=== PATIENT | male | born 1970 | race Caucasian/White ===

== ENCOUNTER 2016-11-15 11:07 | Emergency (ER) | payer MEDICAID ==
[~2016-11-15] VITALS: Ht 172.7 cm; Wt 101.0 kg
[2016-11-15] MEDS ORDERED: SODIUM CHLORIDE FLUSH 10ML SYR IVF ONE (11:30)
[2016-11-15] MEDS ORDERED: MORPHINE SULFATE 4 MG/ML, 1ML IVPush PRN (11:30)
[2016-11-15] MEDS ORDERED: ONDANSETRON 2MG/ML, 2ML IVPush ONE (11:30)
[2016-11-15] MEDS ORDERED: GLIM1TAB2 PO (11:34)
[2016-11-15] MEDS ORDERED: LIRA0.6P SQ (11:34)
[2016-11-15] MEDS ORDERED: METF10002 PO (11:34)
[2016-11-15] MEDS ORDERED: FENO48TA5 PO (11:34)
[2016-11-15] MEDS ORDERED: HYDR-3138 PO (11:34)
[2016-11-15] MEDS ORDERED: TRAM50TA2 PO (11:34)
[2016-11-15] MEDS ORDERED: ATOR20TA9 PO (11:34)
[2016-11-15] MEDS ORDERED: ADAL20KI SQ (11:34)
[2016-11-15] MEDS ORDERED: METO100T3 PO (11:34)
[2016-11-15 11:50] LABS: HEMOGLOBIN 15.4 g/dL (13.7-18.0)
[2016-11-15 12:02] LABS: BLOOD UREA NITROGEN 12 mg/dL (7-18)
[2016-11-15] MEDS ORDERED: MORPHINE SULFATE 4 MG/ML, 1ML ONE (12:05)
[2016-11-15] MEDS ORDERED: ONDANSETRON 2MG/ML, 2ML ONE (12:05)
[2016-11-15 12:10] LABS: IS PT STATUS REG ER OR PRE ER? YES
[2016-11-15 13:08] VITALS: BP 147/91
== END 2016-11-15 13:42 | disposition home or self-care (01) ==
LOC: ED 12:33
DX: J18.9 Pneumonia, unspecified organism (principal); E11.9 Type 2 diabetes mellitus without complications; I10 Essential (primary) hypertension; M19.90 Unspecified osteoarthritis, unspecified site; Z87.891 Personal history of nicotine dependence; Z87.01 Personal history of pneumonia (recurrent)
CPT/HCPCS: 36415; 71020; 80048; 82040; 83605; 83880; 84145; 84484; 85025; 85610; 85651; 85730; 86140; 87040; 93005; 96374; 96375; 99285; J2405

== ENCOUNTER 2018-11-03 07:51 | Emergency (ER) | payer MEDICAID ==
[~2018-11-03] VITALS: Ht 172.7 cm; Wt 104.0 kg
[~2018-11-03 07:51] MED LIST: ADAL20KI SQ; ATOR20TA37 PO; FENO48TA5 PO; GLIM1TAB2 PO; HYDR-3237 PO; LIRA0.6P SQ; METF10002 PO; METO100T7 PO; TRAM50TA2 PO
--- NOTE | 2018-11-03 07:57 | NUR ---
EKG IN TRIAGE
--- NOTE | 2018-11-03 08:02 | NUR ---
Pt ambulates with steady gait and balance from triage to ED room. No defecits observed.
--- NOTE | 2018-11-03 08:05 | NUR ---
First contact with pt. ED MD at bedside. 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 Three weeks ago I was on zithromax. 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 When I ran out of zithromax, I took my wifes doxycycline, it didn't help. I get night sweats, I always have those. I haven't had any fevers or chills." NADN. Pt resting on gurney with face mask on. Pt has unlabored respirations equal bilaterally. Skin is pink, warm, and dry. Pt is AOX4. Pt is able to speak in full sentences. No coughing observed at this time. Pt connected to all monitors. All safety measures in place. Call light within reach.
[2018-11-03] MEDS ORDERED: DULA1.5P INJ (08:20)
[2018-11-03 09:13] LABS: BASOPHILS # (AUTO) 0.03 x10^3/uL (0-0.1); BASOPHILS % (AUTO) 1 % (0-1); EOSINOPHILS # (AUTO) 0.19 x10^3/uL (0-0.4); EOSINOPHILS % (AUTO) 4 % (1-7); LYMPHOCYTES # (AUTO) 2.12 x10^3/uL (1-3.4); LYMPHOCYTES % (AUTO) 40 % (22-44); MD NO; MEAN CORPUSCULAR HGB CONC 34.3 g/dL (33.2-36.2); MEAN CORPUSCULAR VOLUME 93.3 fL (81-97); MEAN PLATELET VOLUME 8.5 fL (7.4-10.4); MONOCYTES # (AUTO) 0.61 x10^3/uL (0.2-0.8); MONOCYTES % (AUTO) 12 % (2-9); NEUTROPHILS # (AUTO) 2.28 x10^3/uL (1.8-6.8); NEUTROPHILS % (AUTO) 44 % (42-75); PLATELET COUNT 219 x10^3/uL (130-400); RED BLOOD COUNT 4.63 x10^6/uL (4.38-5.82)
[2018-11-03 09:16] LABS: ALANINE AMINOTRANSFERASE 152 U/L (12-78); ALBUMIN 3.5 g/dL (3.4-5.0); ANION GAP 8 mmol/L (5-15); CALCIUM 9.2 mg/dL (8.5-10.1); CHLORIDE 104 mmol/L (98-107); CREATININE 0.79 mg/dL (0.7-1.3)
[2018-11-03 09:17] VITALS: BP 168/110
[2018-11-03 09:20] LABS: ALKALINE PHOSPHATASE 137 U/L (45-117); BILIRUBIN,TOTAL 0.5 mg/dL (0.2-1.0); TOTAL PROTEIN 7.8 g/dL (6.4-8.2); TROPONIN I < 0.015 ng/mL (0.000-0.045)
--- NOTE | 2018-11-03 09:49 | NUR ---
Pt resting on gurney. MAHONEY. No needs expressed. Pt waiting for D/C paperwork from ED .
--- NOTE | 2018-11-03 10:31 | NUR ---
Patient given discharge instructions and they have confirmed that they understand the instructions. Patient ambulatory with steady gait. Pt give discharge paperwork and prescription. Pt left with all personal belongings.
== END 2018-11-03 10:33 | disposition home or self-care (01) ==
LOC: ED 09:19
DX: J06.9 Acute upper respiratory infection, unspecified (principal); M19.90 Unspecified osteoarthritis, unspecified site; E11.9 Type 2 diabetes mellitus without complications; I10 Essential (primary) hypertension
CPT/HCPCS: 36415; 71046; 80053; 83605; 83880; 84484; 85025; 87040; 93005; 99284

== ENCOUNTER 2019-12-15 09:49 | Emergency (ER) | payer MEDICAID, OTHER ==
[~2019-12-15] VITALS: Ht 172.7 cm; Wt 99.7 kg
[~2019-12-15 09:49] MED LIST changes: +DULA1.5P INJ; +FENO48TA10 PO; -FENO48TA5 PO; -GLIM1TAB2 PO; +GLIM1TAB7 PO
[2019-12-15] MEDS ORDERED: ONDANSETRON ODT 8 MG ONE (10:25)
[2019-12-15] MEDS ORDERED: OXYcodone/APAP 10/325MG TABLET ONE (10:25)
[2019-12-15] MEDS ORDERED: OXYcodone/APAP 10/325MG TABLET PO ONE (10:30)
[2019-12-15] MEDS ORDERED: ONDANSETRON ODT 4 MG PO PRN (10:30)
--- NOTE | 2019-12-15 10:34 | NUR ---
PT. IS A & O X 4 WITH A GCS OF 15. PT. HAS C/O A 2 WEEK HX OF ABDOMINAL PAIN. PT. STATES NOTHING EXACERBATES IT OR ALLEVIATES IT. PT. IS PINK, WARM AND DRY. LUNGS ARE CTA. MM ARE PINK AND MOIST WITH PULSES +2 THROUGHOUT. PT.'S CAP REFILL IS BRISK LESS THAN 3 SECONDS. PT.'S ABD. IS SOFT AND ROUND WITH BS + X 4 QUADS. PT. STATES HIS PAIN IS IN HIS EPIGASTRIC AREA. PT. WAS MEDICATED FOR PAIN ORDERED. HE IS RECEIVING HIS BEDSIDE ULTRASOUND. SIDERAILS REMAIN UP X 2 WITH THE CALL LIGHT IN PLACE.
[2019-12-15 10:43] LABS: BASOPHILS # (AUTO) 0.04 x10^3/uL (0-0.1); BASOPHILS % (AUTO) 1 % (0-1); CALCIUM 9.3 mg/dL (8.5-10.1); CHLORIDE 102 mmol/L (98-107); EOSINOPHILS # (AUTO) 0.13 x10^3/uL (0-0.4); EOSINOPHILS % (AUTO) 3 % (1-7); LYMPHOCYTES # (AUTO) 2.44 x10^3/uL (1-3.4); LYMPHOCYTES % (AUTO) 53 % (22-44); MD NO; MEAN CORPUSCULAR HEMOGLOBIN 32.6 pg (27.5-34.5); MEAN CORPUSCULAR HGB CONC 34.4 g/dL (33.2-36.2); MEAN CORPUSCULAR VOLUME 94.7 fL (81-97); MEAN PLATELET VOLUME 7.7 fL (7.4-10.4); MONOCYTES # (AUTO) 0.47 x10^3/uL (0.2-0.8); MONOCYTES % (AUTO) 10 % (2-9); NEUTROPHILS # (AUTO) 1.54 x10^3/uL (1.8-6.8); NEUTROPHILS % (AUTO) 33 % (42-75); PLATELET COUNT 233 x10^3/uL (130-400); RED BLOOD COUNT 4.69 x10^6/uL (4.38-5.82); RED CELL DISTRIBUTION WIDTH 13.4 % (9.4-14.8)
[2019-12-15 10:50] LABS: ALANINE AMINOTRANSFERASE 128 U/L (12-78); ALBUMIN 3.7 g/dL (3.4-5.0); ALKALINE PHOSPHATASE 129 U/L (45-117); ANION GAP 9 mmol/L (5-15); BILIRUBIN,TOTAL 0.6 mg/dL (0.2-1.0); CREATININE 0.76 mg/dL (0.7-1.3); TOTAL PROTEIN 8.4 g/dL (6.4-8.2)
--- NOTE | 2019-12-15 11:05 | NUR ---
PT. STATES RELIEF FROM HIS PAIN AND RATES IT 4/10. VSS. NO FURTHER CONCERNS.
--- NOTE | 2019-12-15 11:40 | NUR ---
PT. WAS GIVEN DISCHARGE INSTRUCTIONS AND SCRIPTS WITH UNDERSTANDING VERBALIZED ALONG WITH WILLINGNESS TO COMPLY. PT. WAS AMBULATORY TO THE DISCHARGE DESK, STEADY GAIT.
[2019-12-15 11:41] VITALS: BP 140/60
== END 2019-12-15 11:44 | disposition home or self-care (01) ==
LOC: ED 10:08
DX: K85.20 Alcohol induced acute pancreatitis without necrosis or infection (principal); R10.13 Epigastric pain; R10.11 Right upper quadrant pain; I10 Essential (primary) hypertension; E11.9 Type 2 diabetes mellitus without complications; R94.31 Abnormal electrocardiogram [ECG] [EKG]
CPT/HCPCS: 36415; 76705; 80053; 83690; 85025; 93005; 99285; Q0162

== ENCOUNTER 2020-01-24 21:36 | Inpatient (IN) | payer MEDICAID ==
[~2020-01-24] VITALS: Ht 172.7 cm; Wt 100.2 kg
[~2020-01-24 21:36] MED LIST changes: +FAMO10TA90 PO; +FURO-93 PO; +GABA300C10 PO; +INSU100I13 SQ-INSULIN; +LIPA1CAP61 PO; +LISI-167 PO; +POTA20PA25 PO
[2020-01-24] MEDS ORDERED: ONDANSETRON 2MG/ML, 2ML IVPush ONE (22:30)
[2020-01-24] MEDS ORDERED: SODIUM CHLORIDE 0.9% 1,000ML IVBOLUS ONE (22:30)
[2020-01-24] MEDS ORDERED: ONDANSETRON 2MG/ML, 2ML ONE (22:34)
[2020-01-24] MEDS ORDERED: MORPHINE SULFATE 4 MG/ML, 1ML ONE ×2 (22:34→23:25)
[2020-01-24] MEDS: MORPHINE SULFATE 4 MG/ML, 1ML IVPush PRN ×2 (22:37→23:27)
--- NOTE | 2020-01-24 22:42 | NUR ---
PT HAD A MASS REMOVED 3 WEEKS AGO FROM PANCREASE AND PT FOR THE LAST 2-3 DAYS HAS HAD N/V WITH INCREASED ABD PAIN AND ABD RIDGITITY. PT A/O X4 WITH A STEAD GAIT.
[2020-01-24 22:57] LABS: BASOPHILS # (AUTO) 0.02 x10^3/uL (0-0.1); BASOPHILS % (AUTO) 0 % (0-1); EOSINOPHILS # (AUTO) 0.01 x10^3/uL (0-0.4); EOSINOPHILS % (AUTO) 0 % (1-7); LYMPHOCYTES # (AUTO) 1.52 x10^3/uL (1-3.4); LYMPHOCYTES % (AUTO) 18 % (22-44); MD NO; MEAN CORPUSCULAR HEMOGLOBIN 31.8 pg (27.5-34.5); MEAN CORPUSCULAR HGB CONC 33.7 g/dL (33.2-36.2); MEAN CORPUSCULAR VOLUME 94.5 fL (81-97); MEAN PLATELET VOLUME 7.4 fL (7.4-10.4); MONOCYTES # (AUTO) 0.71 x10^3/uL (0.2-0.8); MONOCYTES % (AUTO) 8 % (2-9); NEUTROPHILS # (AUTO) 6.13 x10^3/uL (1.8-6.8); NEUTROPHILS % (AUTO) 73 % (42-75); PLATELET COUNT 213 x10^3/uL (130-400); RED BLOOD COUNT 4.62 x10^6/uL (4.38-5.82); RED CELL DISTRIBUTION WIDTH 12.7 % (9.4-14.8)
[2020-01-24 23:01] LABS: ALANINE AMINOTRANSFERASE 49 U/L (12-78); ALBUMIN 3.5 g/dL (3.4-5.0); ANION GAP 11 mmol/L (5-15); CALCIUM 9.2 mg/dL (8.5-10.1); CHLORIDE 97 mmol/L (98-107)
[2020-01-24 23:03] LABS: ALKALINE PHOSPHATASE 132 U/L (45-117); BILIRUBIN,TOTAL 0.9 mg/dL (0.2-1.0); TOTAL PROTEIN 8.5 g/dL (6.4-8.2)
--- NOTE | 2020-01-24 23:03 | NUR ---
BEDSIDE REPORT RECEIVED FROM INÉS MCCOY. PT SITTING IN BED, WATCHING TV. NO SIGNS OF DISTRESS, VSS, RESPIRATIONS EVEN AND UNLABORED, NO COMPLAINTS, CONVERSING WITH THIS RN. PT STATES HE WANTS TO WAIT FOR PAIN MEDS, PT AWARE THAT PAIN MEDS ARE AVAILABLE. ALL NEEDS MET AT THIS TIME.
[2020-01-24] MEDS ORDERED: OMEP40CA42 PO (23:23)
--- NOTE | 2020-01-25 00:38 | NUR ---
PT AMBULATORY TO BATHROOM, STEADY GAIT. AWAITING FURTHER ORDERS, PT UPDATED ON THIS POC. VSS, RESPIRATONS EVEN AND UNLABORED, PT REPORTS PAIN, WILL CONITINUE TO MONITOR.
--- NOTE | 2020-01-25 00:52 | NUR ---
MED REC COMPLETED TO THE FULLEST EXTENT POSSIBLE WITH PT. PT UNAWARE OF SOME MEDS IN THE LIST.
[2020-01-25] MEDS ORDERED: SODIUM CHLORIDE 0.9% 1,000ML IVBOLUS ONE (01:00)
[2020-01-25] MEDS ORDERED: MORPHINE SULFATE 4 MG/ML, 1ML IVPush PRN (01:00)
[2020-01-25] MEDS ORDERED: OMNIPAQUE 350 MG/ML, 100ML BOTTLE ONE (01:36)
--- NOTE | 2020-01-25 02:00 | NUR ---
REPORT GIVEN TO INÉS VERDUGO.
[2020-01-25] MEDS ORDERED: MORPHINE SULFATE 4 MG/ML, 1ML ONE (02:01)
--- NOTE | 2020-01-25 02:08 | NUR ---
ADMITTING MD TO BEDSIDE. PT SITTING IN CHAIR FOR POSITION OF COMFORT. VSS, MEDICATED TO MAR FOR PAIN. PT WATCHING TV. NO SIGNS OF ACUTE DISTRESS.
[2020-01-25] MEDS ORDERED: ACETAMINOPHEN 325 MG TABLET PO PRN (02:30)
[2020-01-25] MEDS ORDERED: ONDANSETRON 2MG/ML, 2ML IVPush PRN (02:30)
[2020-01-25] MEDS ORDERED: morphine SULFATE 10 MG/ML, 1ML IVPush PRN (02:30)
[2020-01-25] MEDS: INSULIN LISPRO 100 UNITS/ML, PEN SQ-INSULIN SCH ×5 (02:30→21:00)
[2020-01-25] MEDS ORDERED: BISACODYL 10 MG SUPP PR PRN (02:30)
[2020-01-25] MEDS ORDERED: hydrALAzine 20 MG/ML, 1ML IVPush PRN (02:30)
[2020-01-25] MEDS ORDERED: PROMETHAZINE 25 MG/ML, 1ML IM PRN (02:30)
[2020-01-25] MEDS: INSULIN GLARGINE 100 UNITS/ML, PEN SQ-INSULIN SCH ×2 (02:30→21:00)
[2020-01-25] MEDS ORDERED: POLYETHYLENE GLYCOL 17 GM PACKET PO PRN (02:30)
[2020-01-25 02:50] VITALS: BP 168/114
[2020-01-25] MEDS: SODIUM CHLORIDE 0.9% 1,000 ML IV SCH ×4 (03:32→23:57)
[2020-01-25 03:46] VITALS: BP 138/83
[2020-01-25] MEDS ORDERED: OXYcodone IR 5MG TABLET PO ONE (04:30)
[2020-01-25] MEDS ORDERED: DIPHENHYDRAMINE 50 MG/ML, 1ML IVPush ONE (05:00)
[2020-01-25 07:57] VITALS: BP 156/83
[2020-01-25] MEDS ORDERED: HYDROmorphone 2 MG/ML, 1ML ONE ×2 (08:14→08:15)
[2020-01-25] MEDS: HYDROmorphone 2 MG/ML, 1ML IVPush PRN ×5 (08:26→22:15)
[2020-01-25] MEDS: LISINOPRIL 40 MG TABLET PO SCH (08:26)
[2020-01-25] MEDS: METOPROLOL TARTRATE 100 MG TAB PO SCH ×2 (08:26→21:28)
[2020-01-25] MEDS: OMEPRAZOLE 20 MG CAPSULE.DR PO SCH (08:26)
[2020-01-25] MEDS: PANCRELIPASE 24,000 CAPSULE.DR PO SCH ×3 (08:26→15:45)
[2020-01-25] MEDS ORDERED: HYDROmorphone 1 MG/ML, 1ML INJ IV PRN (08:30)
[2020-01-25 08:32] VITALS: BP 176/84
[2020-01-25] MEDS ORDERED: MAGNESIUM HYDROXIDE 8%, 30ML UDC PO PRN (10:00)
[2020-01-25 13:37] VITALS: BP 160/91
[2020-01-25 21:01] VITALS: BP 135/85
[2020-01-26 01:20] VITALS: BP 151/89
[2020-01-26] MEDS: HYDROmorphone 2 MG/ML, 1ML IVPush PRN ×5 (03:10→21:07)
[2020-01-26 05:29] LABS: BASOPHILS # (AUTO) 0.02 x10^3/uL (0-0.1); BASOPHILS % (AUTO) 0 % (0-1); EOSINOPHILS # (AUTO) 0.03 x10^3/uL (0-0.4); EOSINOPHILS % (AUTO) 0 % (1-7); LYMPHOCYTES # (AUTO) 1.04 x10^3/uL (1-3.4); LYMPHOCYTES % (AUTO) 12 % (22-44); MD NO; MEAN CORPUSCULAR HEMOGLOBIN 32.1 pg (27.5-34.5); MEAN CORPUSCULAR HGB CONC 33.6 g/dL (33.2-36.2); MEAN CORPUSCULAR VOLUME 95.5 fL (81-97); MEAN PLATELET VOLUME 7.8 fL (7.4-10.4); MONOCYTES # (AUTO) 0.84 x10^3/uL (0.2-0.8); MONOCYTES % (AUTO) 10 % (2-9); NEUTROPHILS # (AUTO) 6.59 x10^3/uL (1.8-6.8); NEUTROPHILS % (AUTO) 77 % (42-75); PLATELET COUNT 205 x10^3/uL (130-400)
[2020-01-26 05:33] LABS: ALBUMIN 2.8 g/dL (3.4-5.0); ANION GAP 11 mmol/L (5-15); CHLORIDE 106 mmol/L (98-107)
[2020-01-26 05:38] LABS: ALANINE AMINOTRANSFERASE 35 U/L (12-78); ALKALINE PHOSPHATASE 111 U/L (45-117); BILIRUBIN,TOTAL 0.8 mg/dL (0.2-1.0); CREATININE 0.64 mg/dL (0.7-1.3); TOTAL PROTEIN 7.7 g/dL (6.4-8.2)
[2020-01-26] MEDS: INSULIN LISPRO 100 UNITS/ML, PEN SQ-INSULIN SCH ×4 (07:00→20:37)
[2020-01-26 07:05] VITALS: BP 155/79
[2020-01-26] MEDS: SODIUM CHLORIDE 0.9% 1,000 ML IV SCH ×3 (07:18→18:09)
[2020-01-26] MEDS: PANCRELIPASE 24,000 CAPSULE.DR PO SCH ×3 (08:00→16:00)
[2020-01-26] MEDS: OMEPRAZOLE 20 MG CAPSULE.DR PO SCH (08:01)
[2020-01-26] MEDS: LISINOPRIL 40 MG TABLET PO SCH (08:01)
[2020-01-26] MEDS: METOPROLOL TARTRATE 100 MG TAB PO SCH ×2 (08:01→21:07)
[2020-01-26] MEDS: BISACODYL 10 MG SUPP PR SCH (08:01)
[2020-01-26 13:35] LABS: CHOL/HDL RATIO 4.9; LDL/HDL RATIO 2.9 (0.5-3.0)
[2020-01-26 15:00] VITALS: BP 128/82
[2020-01-26] MEDS ORDERED: FENTANYL PF 100 MCG/2ML ONE (15:16)
[2020-01-26] MEDS ORDERED: CHLORHEXIDINE 15 ML UDC MM ONE (15:30)
[2020-01-26] MEDS ORDERED: CHLORHEXIDINE 15 ML UDC ONE (15:32)
[2020-01-26] MEDS ORDERED: SUCCINYLCHOLINE 20 MG/ML, 10ML ONE (15:49)
[2020-01-26] MEDS ORDERED: ROCURONIUM 10 MG/ML,10ML ONE (15:49)
[2020-01-26] MEDS ORDERED: PROPOFOL 10 MG/ML, 20ML ONE (16:11)
[2020-01-26] MEDS ORDERED: DEXAMETHASONE 4 MG/ML, 1ML ONE (16:11)
[2020-01-26] MEDS ORDERED: ONDANSETRON 2MG/ML, 2ML ONE (16:11)
[2020-01-26] MEDS ORDERED: OMNIPAQUE 350 MG/ML, 50 ML BOTTLE ONE (16:33)
[2020-01-26 20:35] VITALS: BP 124/76
[2020-01-26] MEDS: INSULIN GLARGINE 100 UNITS/ML, PEN SQ-INSULIN SCH (21:08)
[2020-01-27] MEDS: SODIUM CHLORIDE 0.9% 1,000 ML IV SCH ×2 (00:51→08:10)
[2020-01-27 00:55] VITALS: BP 146/82
[2020-01-27] MEDS: HYDROmorphone 2 MG/ML, 1ML IVPush PRN ×2 (01:06→06:00)
[2020-01-27 05:30] LABS: BASOPHILS # (AUTO) 0.05 x10^3/uL (0-0.1); BASOPHILS % (AUTO) 1 % (0-1); EOSINOPHILS % (AUTO) 0 % (1-7); LYMPHOCYTES % (AUTO) 19 % (22-44); MD NO; MEAN CORPUSCULAR HEMOGLOBIN 32.1 pg (27.5-34.5); MEAN CORPUSCULAR HGB CONC 33.9 g/dL (33.2-36.2); MEAN CORPUSCULAR VOLUME 94.8 fL (81-97); MEAN PLATELET VOLUME 7.7 fL (7.4-10.4); MONOCYTES # (AUTO) 0.42 x10^3/uL (0.2-0.8); MONOCYTES % (AUTO) 7 % (2-9); NEUTROPHILS # (AUTO) 4.12 x10^3/uL (1.8-6.8); NEUTROPHILS % (AUTO) 72 % (42-75); PLATELET COUNT 226 x10^3/uL (130-400); RED BLOOD COUNT 3.64 x10^6/uL (4.38-5.82); RED CELL DISTRIBUTION WIDTH 12.9 % (9.4-14.8)
[2020-01-27 05:35] LABS: ALANINE AMINOTRANSFERASE 32 U/L (12-78); ALBUMIN 2.4 g/dL (3.4-5.0); ANION GAP 9 mmol/L (5-15); CALCIUM 8.6 mg/dL (8.5-10.1); CHLORIDE 107 mmol/L (98-107)
[2020-01-27 05:37] LABS: ALKALINE PHOSPHATASE 176 U/L (45-117); BILIRUBIN,TOTAL 0.7 mg/dL (0.2-1.0); TOTAL PROTEIN 6.8 g/dL (6.4-8.2)
[2020-01-27] MEDS: INSULIN LISPRO 100 UNITS/ML, PEN SQ-INSULIN SCH (07:00)
[2020-01-27 07:12] VITALS: BP 151/67
[2020-01-27] MEDS ORDERED: METO100T7 PO (07:35)
[2020-01-27] MEDS ORDERED: TRAM100T39 PO (07:38)
[2020-01-27] MEDS ORDERED: GLIM2TAB7 PO (07:39)
[2020-01-27] MEDS: LISINOPRIL 40 MG TABLET PO SCH (07:53)
[2020-01-27] MEDS: OMEPRAZOLE 20 MG CAPSULE.DR PO SCH (07:53)
[2020-01-27] MEDS: METOPROLOL TARTRATE 100 MG TAB PO SCH (07:54)
[2020-01-27] MEDS: PANCRELIPASE 24,000 CAPSULE.DR PO SCH (07:55)
[2020-01-27] MEDS: BISACODYL 10 MG SUPP PR SCH (07:55)
[2020-01-27] MEDS ORDERED: OXYC-302 PO (10:28)
== END 2020-01-27 10:39 | disposition home or self-care (01) | DRG 439 ==
LOC: ED 22:19 → 3N 01-25 02:51 → DCLOUNGE 01-27 10:28
PROVIDERS: ADMIT Family Medicine; ATTEND Family Medicine
PROC: 0FPD8DZ Removal of Intraluminal Device from Pancreatic Duct, Via Natural or Artificial Opening Endoscopic (ICD-10-PCS; 2020-01-26)
PROC: BF111ZZ Fluoroscopy of Biliary and Pancreatic Ducts using Low Osmolar Contrast (ICD-10-PCS; 2020-01-26)
PROC: 0FCD8ZZ Extirpation of Matter from Pancreatic Duct, Via Natural or Artificial Opening Endoscopic (ICD-10-PCS; principal; 2020-01-26 15:00)
DX: K85.90 Acute pancreatitis without necrosis or infection, unspecified (principal); E46 Unspecified protein-calorie malnutrition; E87.1 Hypo-osmolality and hyponatremia; K50.90 Crohn's disease, unspecified, without complications; K86.1 Other chronic pancreatitis; D63.8 Anemia in other chronic diseases classified elsewhere; E11.65 Type 2 diabetes mellitus with hyperglycemia; E66.01 Morbid (severe) obesity due to excess calories; E78.1 Pure hyperglyceridemia; E86.1 Hypovolemia; I10 Essential (primary) hypertension; K21.9 Gastro-esophageal reflux disease without esophagitis; K59.00 Constipation, unspecified; K76.0 Fatty (change of) liver, not elsewhere classified; L40.50 Arthropathic psoriasis, unspecified; M19.90 Unspecified osteoarthritis, unspecified site; Z68.33 Body mass index [BMI] 33.0-33.9, adult; R74.8 Abnormal levels of other serum enzymes; Z03.818 Encounter for observation for suspected exposure to other biological agents ruled out; Z79.84 Long term (current) use of oral hypoglycemic drugs
CPT/HCPCS: 36415; 71045; 74177; 74328; 76700; 80053; 80061; 82787; 82962; 83036; 83690; 85025; 86038; 87635; 96361; 96374; 96375; 96376; G0378; J1100; J1170; J2405; J2704; J3010; Q9967; C1769; J0330; J1200; J2270; J7030

== ENCOUNTER 2020-02-12 11:12 | Inpatient (IN) | payer MEDICAID ==
[~2020-02-12] VITALS: Ht 172.7 cm; Wt 90.8 kg
[~2020-02-12 11:12] MED LIST changes: +GLIM2TAB7 PO; +OMEP40CA42 PO; +OXYC-302 PO; +TRAM100T39 PO
--- NOTE | 2020-02-12 11:40 | NUR ---
us at bedside. pt in hospital gown. pt on vitals monitors. will continue to monitor.
[2020-02-12] MEDS ORDERED: ONDANSETRON 2MG/ML, 2ML IVPush ONE (12:00)
[2020-02-12 12:07] LABS: BASOPHILS # (AUTO) 0.02 x10^3/uL (0-0.1); BASOPHILS % (AUTO) 0 % (0-1); EOSINOPHILS # (AUTO) 0.02 x10^3/uL (0-0.4); EOSINOPHILS % (AUTO) 0 % (1-7); LYMPHOCYTES # (AUTO) 1.21 x10^3/uL (1-3.4); LYMPHOCYTES % (AUTO) 12 % (22-44); MD NO; MEAN CORPUSCULAR HEMOGLOBIN 31.5 pg (27.5-34.5); MEAN CORPUSCULAR HGB CONC 33.7 g/dL (33.2-36.2); MEAN CORPUSCULAR VOLUME 93.5 fL (81-97); MEAN PLATELET VOLUME 7.7 fL (7.4-10.4); MONOCYTES # (AUTO) 0.29 x10^3/uL (0.2-0.8); MONOCYTES % (AUTO) 3 % (2-9); NEUTROPHILS # (AUTO) 8.56 x10^3/uL (1.8-6.8); NEUTROPHILS % (AUTO) 85 % (42-75); PLATELET COUNT 376 x10^3/uL (130-400); RED BLOOD COUNT 4.69 x10^6/uL (4.38-5.82); RED CELL DISTRIBUTION WIDTH 12.4 % (9.4-14.8)
[2020-02-12] MEDS ORDERED: HYDROmorphone 1 MG/ML, 1ML INJ ONE ×2 (12:12→14:41)
[2020-02-12] MEDS ORDERED: ONDANSETRON 2MG/ML, 2ML ONE (12:13)
[2020-02-12 12:18] LABS: ALANINE AMINOTRANSFERASE 45 U/L (12-78); ANION GAP 15 mmol/L (5-15); CALCIUM 9.7 mg/dL (8.5-10.1); CHLORIDE 97 mmol/L (98-107)
[2020-02-12 12:21] LABS: ALKALINE PHOSPHATASE 348 U/L (45-117); BILIRUBIN,TOTAL 0.6 mg/dL (0.2-1.0); TOTAL PROTEIN 9.2 g/dL (6.4-8.2)
--- NOTE | 2020-02-12 12:21 | NUR ---
iv started. pt going to xray at this time.
[2020-02-12] MEDS ORDERED: SODIUM CHLORIDE 0.9% 1,000ML IVBOLUS ONE (12:30)
[2020-02-12] MEDS ORDERED: SODIUM CHLORIDE FLUSH 10ML SYR IVF ONE (12:30)
[2020-02-12] MEDS: HYDROmorphone 1 MG/ML, 1ML INJ IVPush PRN ×2 (12:30→14:43)
[2020-02-12 13:29] LABS: HCT (SEDRATE) 43.8 % (39.2-51.8)
[2020-02-12] MEDS ORDERED: hydrALAzine 20 MG/ML, 1ML IVPush PRN (13:30)
[2020-02-12] MEDS ORDERED: ONDANSETRON 2MG/ML, 2ML IVPush PRN (13:30)
--- NOTE | 2020-02-12 13:38 | NUR ---
PT RESTING CALMLY IN BED. NO URINE AT THIS TIME. ERP OKAY IF PT UNABLE TO VOID, CAN WAIT TIL PT CAN VOID. PT HAS HAD URINE CUP AND URINAL AT BEDSIDE FOR SPECIMEN COLLECTION, WHEN CAN. PT REPORTS IMPROVEMENT IN PAIN, STATED HE WOULD LIKE TO TRY AND SLEEPT A LITTLE. LIGHTS SLIGHTLY DIMMED. WILL CONTINUE TO MONITOR.
--- NOTE | 2020-02-12 14:18 | NUR ---
REPORT TO LOIS CONTE.
[2020-02-12 15:10] VITALS: BP 142/85
[2020-02-12] MEDS ORDERED: ERTU1TAB11 PO (15:29)
[2020-02-12] MEDS ORDERED: MULT-658 PO (15:36)
[2020-02-12] MEDS ORDERED: DOCU-131 PO (15:36)
[2020-02-12] MEDS ORDERED: OMNIPAQUE 350 MG/ML, 100ML BOTTLE ONE (16:10)
[2020-02-12] MEDS: SODIUM CHLORIDE 0.9% 1,000 ML IV SCH ×2 (16:21→22:48)
[2020-02-12] MEDS: HYDROmorphone 2 MG/ML, 1ML IVPush PRN ×2 (18:07→21:10)
[2020-02-12 18:41] LABS: MICROSCOPIC NOT IND
[2020-02-12 19:43] VITALS: BP 134/83
[2020-02-12] MEDS: FAMOTIDINE 20 MG/2 ML IVPush SCH (20:06)
[2020-02-13] MEDS: HYDROmorphone 2 MG/ML, 1ML IVPush PRN ×8 (00:20→22:19)
[2020-02-13 02:59] VITALS: BP 161/88
[2020-02-13] MEDS: SODIUM CHLORIDE 0.9% 1,000 ML IV SCH ×3 (04:47→18:37)
[2020-02-13 05:22] LABS: BASOPHILS # (AUTO) 0.03 x10^3/uL (0-0.1); BASOPHILS % (AUTO) 0 % (0-1); EOSINOPHILS % (AUTO) 0 % (1-7); LYMPHOCYTES # (AUTO) 0.98 x10^3/uL (1-3.4); LYMPHOCYTES % (AUTO) 10 % (22-44); MD NO; MEAN CORPUSCULAR HEMOGLOBIN 31.2 pg (27.5-34.5); MEAN CORPUSCULAR VOLUME 94.7 fL (81-97); MEAN PLATELET VOLUME 8.6 fL (7.4-10.4); MONOCYTES % (AUTO) 8 % (2-9); NEUTROPHILS # (AUTO) 8.16 x10^3/uL (1.8-6.8); NEUTROPHILS % (AUTO) 82 % (42-75); PLATELET COUNT 343 x10^3/uL (130-400); RED BLOOD COUNT 4.53 x10^6/uL (4.38-5.82); RED CELL DISTRIBUTION WIDTH 12.8 % (9.4-14.8)
[2020-02-13 05:32] LABS: ALANINE AMINOTRANSFERASE 35 U/L (12-78); ALBUMIN 2.8 g/dL (3.4-5.0); ANION GAP 19 mmol/L (5-15); CALCIUM 9.5 mg/dL (8.5-10.1); CHLORIDE 103 mmol/L (98-107); CREATININE 0.83 mg/dL (0.7-1.3)
[2020-02-13 05:36] LABS: ALKALINE PHOSPHATASE 283 U/L (45-117); BILIRUBIN,TOTAL 0.5 mg/dL (0.2-1.0); CHOL/HDL RATIO 4.6; CHOLESTEROL, TOTAL 164 mg/dL (140-239); HDL CHOL % 22 % (26-37); HDL CHOLESTEROL (DIRECT) 36 mg/dL (40-60); LDL CHOLESTEROL,CALCULATED 99 mg/dL (54-169); LDL/HDL RATIO 2.8 (0.5-3.0); TOTAL PROTEIN 8.7 g/dL (6.4-8.2); TRIGLYCERIDES 143 mg/dL (50-200); VLDL CHOLESTEROL 29 mg/dL (0-25)
[2020-02-13 07:01] VITALS: BP 156/90
[2020-02-13] MEDS: FAMOTIDINE 20 MG/2 ML IVPush SCH ×2 (08:46→20:28)
[2020-02-13] MEDS: GLYCERIN ADULT SUPP PR PRN (12:23)
[2020-02-13 12:59] VITALS: BP 158/83
[2020-02-13 20:22] VITALS: BP 152/81
[2020-02-14 00:10] VITALS: BP 161/90
[2020-02-14] MEDS: HYDROmorphone 2 MG/ML, 1ML IVPush PRN ×7 (01:19→20:17)
[2020-02-14] MEDS: SODIUM CHLORIDE 0.9% 1,000 ML IV SCH ×4 (01:25→21:46)
[2020-02-14 07:51] VITALS: BP 131/75
[2020-02-14] MEDS: FAMOTIDINE 20 MG/2 ML IVPush SCH (08:48)
[2020-02-14] MEDS: PANTOPRAZOLE 40 MG IV IVPush SCH ×2 (13:45→20:17)
[2020-02-14 15:02] VITALS: BP 182/95
[2020-02-14] MEDS: MAGNESIUM HYDROXIDE 8%, 30ML UDC PO PRN (15:42)
[2020-02-14] MEDS: KETOROLAC 30 MG/1 ML IM SCH ×2 (15:47→21:46)
[2020-02-14] MEDS: GLYCERIN ADULT SUPP PR PRN (15:48)
[2020-02-14 20:29] VITALS: BP 139/84
[2020-02-15 01:28] VITALS: BP 144/75
[2020-02-15] MEDS: HYDROmorphone 2 MG/ML, 1ML IVPush PRN ×7 (01:29→20:55)
[2020-02-15] MEDS: KETOROLAC 30 MG/1 ML IM SCH ×3 (04:15→15:34)
[2020-02-15] MEDS: SODIUM CHLORIDE 0.9% 1,000 ML IV SCH ×2 (04:28→11:09)
[2020-02-15 05:46] LABS: CHLORIDE 113 mmol/L (98-107)
[2020-02-15 05:59] LABS: ALANINE AMINOTRANSFERASE 24 U/L (12-78); ALBUMIN 2.3 g/dL (3.4-5.0); ALKALINE PHOSPHATASE 246 U/L (45-117); ANION GAP 15 mmol/L (5-15); BILIRUBIN,TOTAL 0.4 mg/dL (0.2-1.0); CALCIUM 9.2 mg/dL (8.5-10.1); CREATININE 1.03 mg/dL (0.7-1.3); TOTAL PROTEIN 7.9 g/dL (6.4-8.2)
[2020-02-15 07:28] VITALS: BP 124/73
[2020-02-15] MEDS: PANTOPRAZOLE 40 MG IV IVPush SCH ×2 (08:03→20:54)
[2020-02-15 13:33] VITALS: BP 127/69
[2020-02-15] MEDS ORDERED: LACTATED RINGERS 1,000 ML IV SCH (14:00)
[2020-02-15 15:34] LABS: SALICYLATE LEVEL 3.7 mg/dL (2.8-20.0)
[2020-02-15 16:00] LABS: ACETONE, SERUM Large (80mg/dL) (Negative)
[2020-02-15 16:19] LABS: AMPHETAMINE SCREEN, URINE Negative (Negative); BARBITURATE SCREEN, URINE Negative (Negative); BENZODIAZEPINE SCREEN, URINE Negative (Negative); CANNABINOID SCREEN, URINE Negative (Negative); COCAINE SCREEN, URINE Negative (Negative); METHADONE SCREEN, URINE Negative (Negative); OPIATE SCREEN, URINE Positive (Negative)
[2020-02-15] MEDS: SODIUM BICARBONATE 8.4% 150 MEQ in DEXTROSE 5% 1,000 ML IV SCH (18:18)
[2020-02-15 21:00] VITALS: BP 146/78
[2020-02-15] MEDS: KETOROLAC 30 MG/1 ML IVPush SCH (21:30)
[2020-02-16 01:28] VITALS: BP 142/73
[2020-02-16] MEDS ORDERED: KETOROLAC 30 MG/1 ML IVPush SCH (01:30)
[2020-02-16] MEDS: HYDROmorphone 2 MG/ML, 1ML IVPush PRN ×8 (01:36→23:56)
[2020-02-16] MEDS: SODIUM BICARBONATE 8.4% 150 MEQ in DEXTROSE 5% 1,000 ML IV SCH ×2 (03:01→17:44)
[2020-02-16] MEDS: KETOROLAC 30 MG/1 ML IVPush SCH ×5 (03:41→20:58)
[2020-02-16 05:57] LABS: BASOPHILS # (AUTO) 0.08 x10^3/uL (0-0.1); BASOPHILS % (AUTO) 2 % (0-1); EOSINOPHILS # (AUTO) 0.13 x10^3/uL (0-0.4); EOSINOPHILS % (AUTO) 2 % (1-7); LYMPHOCYTES # (AUTO) 1.47 x10^3/uL (1-3.4); LYMPHOCYTES % (AUTO) 28 % (22-44); MD NO; MEAN CORPUSCULAR HEMOGLOBIN 31.2 pg (27.5-34.5); MEAN CORPUSCULAR HGB CONC 33.4 g/dL (33.2-36.2); MEAN CORPUSCULAR VOLUME 93.4 fL (81-97); MONOCYTES # (AUTO) 0.48 x10^3/uL (0.2-0.8); MONOCYTES % (AUTO) 9 % (2-9); NEUTROPHILS # (AUTO) 3.17 x10^3/uL (1.8-6.8); NEUTROPHILS % (AUTO) 60 % (42-75); PLATELET COUNT 322 x10^3/uL (130-400); RED BLOOD COUNT 3.78 x10^6/uL (4.38-5.82); RED CELL DISTRIBUTION WIDTH 12.8 % (9.4-14.8)
[2020-02-16 06:07] LABS: ALBUMIN 2.2 g/dL (3.4-5.0); ANION GAP 17 mmol/L (5-15); CALCIUM 8.8 mg/dL (8.5-10.1); CHLORIDE 108 mmol/L (98-107)
[2020-02-16 06:12] LABS: ALANINE AMINOTRANSFERASE 21 U/L (12-78); ALKALINE PHOSPHATASE 207 U/L (45-117); BILIRUBIN,TOTAL 0.6 mg/dL (0.2-1.0); CREATININE 0.94 mg/dL (0.7-1.3); TOTAL PROTEIN 7.5 g/dL (6.4-8.2)
[2020-02-16 07:33] VITALS: BP 132/82
[2020-02-16] MEDS: PANTOPRAZOLE 40 MG IV IVPush SCH ×2 (08:02→20:23)
[2020-02-16] MEDS ORDERED: POTASSIUM CHLORIDE 40 MEQ in SODIUM CHLORIDE 0.9% 500 ML IV ONE (08:30)
[2020-02-16] MEDS ORDERED: POTASSIUM PHOSPHATE 44 MEQ in SODIUM CHLORIDE 0.9% 500 ML IV ONE (08:30)
[2020-02-16] MEDS ORDERED: MAGNESIUM SULFATE PMX 4GM/100M 100 ML IV ONE (08:30)
[2020-02-16 12:49] VITALS: BP 124/82
[2020-02-16] MEDS: PANCRELIPASE 24,000 CAPSULE.DR PO SCH ×2 (16:42→20:22)
[2020-02-16 19:05] VITALS: BP 132/76
[2020-02-17 00:16] VITALS: BP 174/94
[2020-02-17] MEDS: HYDROmorphone 2 MG/ML, 1ML IVPush PRN ×7 (02:58→21:58)
[2020-02-17] MEDS: SODIUM BICARBONATE 8.4% 150 MEQ in DEXTROSE 5% 1,000 ML IV SCH (02:58)
[2020-02-17] MEDS: KETOROLAC 30 MG/1 ML IVPush SCH ×5 (03:59→23:13)
[2020-02-17 05:34] LABS: ALANINE AMINOTRANSFERASE 20 U/L (12-78); ALBUMIN 2.2 g/dL (3.4-5.0); ANION GAP 16 mmol/L (5-15); CALCIUM 8.4 mg/dL (8.5-10.1); CHLORIDE 108 mmol/L (98-107); CREATININE 0.85 mg/dL (0.7-1.3)
[2020-02-17 05:36] LABS: ALKALINE PHOSPHATASE 203 U/L (45-117); BILIRUBIN,TOTAL 0.4 mg/dL (0.2-1.0); TOTAL PROTEIN 7.5 g/dL (6.4-8.2)
[2020-02-17] MEDS ORDERED: MAGNESIUM SULFATE PMX 2GM/50ML 50 ML IV ONE (07:00)
[2020-02-17 07:17] VITALS: BP 164/85
[2020-02-17] MEDS ORDERED: POTASSIUM CHLORIDE 40 MEQ in SODIUM CHLORIDE 0.9% 500 ML IV ONE (07:30)
[2020-02-17] MEDS ORDERED: POTASSIUM PHOSPHATE 44 MEQ in SODIUM CHLORIDE 0.9% 500 ML IV ONE (07:30)
[2020-02-17] MEDS: PANTOPRAZOLE 40 MG IV IVPush SCH ×2 (08:09→20:46)
[2020-02-17] MEDS: LACTATED RINGERS 1,000 ML IV SCH ×2 (08:09→18:36)
[2020-02-17] MEDS: PANCRELIPASE 24,000 CAPSULE.DR PO SCH ×3 (08:11→22:17)
[2020-02-17] MEDS: POTASSIUM CHLORIDE 20 MEQ TAB.ER.PRT PO SCH ×2 (08:37→20:46)
[2020-02-17] MEDS ORDERED: POTASSIUM CHLORIDE 20 MEQ PACKET PO SCH (09:00)
[2020-02-17] MEDS ORDERED: POTASSIUM CHLORIDE 10% 40 MEQ/30 ML UDC PO SCH (09:00)
[2020-02-17] MEDS: ENOXAPARIN 40 MG/0.4 ML SQ SCH (09:14)
[2020-02-17] MEDS: INSULIN LISPRO 100 UNITS/ML, PEN SQ-INSULIN SCH ×4 (12:02→20:46)
[2020-02-17 12:15] VITALS: BP 164/90
[2020-02-17 19:47] VITALS: BP 161/86
[2020-02-18 00:43] VITALS: BP 163/98
[2020-02-18] MEDS: HYDROmorphone 2 MG/ML, 1ML IVPush PRN ×7 (01:15→21:21)
[2020-02-18] MEDS: LACTATED RINGERS 1,000 ML IV SCH ×3 (02:05→17:48)
[2020-02-18 04:41] LABS: ALBUMIN 2.2 g/dL (3.4-5.0); ANION GAP 14 mmol/L (5-15); CALCIUM 8.9 mg/dL (8.5-10.1); CHLORIDE 109 mmol/L (98-107)
[2020-02-18 04:45] LABS: ALANINE AMINOTRANSFERASE 32 U/L (12-78); ALKALINE PHOSPHATASE 354 U/L (45-117); BILIRUBIN,TOTAL 0.4 mg/dL (0.2-1.0); TOTAL PROTEIN 7.2 g/dL (6.4-8.2)
[2020-02-18] MEDS: KETOROLAC 30 MG/1 ML IVPush SCH ×4 (05:19→23:15)
[2020-02-18 07:19] VITALS: BP 179/97
[2020-02-18] MEDS: PANTOPRAZOLE 40 MG IV IVPush SCH ×2 (08:50→19:59)
[2020-02-18] MEDS: ENOXAPARIN 40 MG/0.4 ML SQ SCH (08:51)
[2020-02-18] MEDS: PANCRELIPASE 24,000 CAPSULE.DR PO SCH ×3 (08:51→23:15)
[2020-02-18] MEDS: INSULIN LISPRO 100 UNITS/ML, PEN SQ-INSULIN SCH ×4 (09:00→21:20)
[2020-02-18 13:25] VITALS: BP 167/89
[2020-02-18 19:12] VITALS: BP 169/84
[2020-02-19 00:32] VITALS: BP 141/86
[2020-02-19] MEDS: HYDROmorphone 2 MG/ML, 1ML IVPush PRN ×7 (00:39→22:13)
[2020-02-19] MEDS: LACTATED RINGERS 1,000 ML IV SCH ×3 (01:58→17:09)
[2020-02-19] MEDS: KETOROLAC 30 MG/1 ML IVPush SCH ×4 (05:26→22:48)
[2020-02-19] MEDS: INSULIN LISPRO 100 UNITS/ML, PEN SQ-INSULIN SCH ×4 (08:45→22:35)
[2020-02-19] MEDS: ENOXAPARIN 40 MG/0.4 ML SQ SCH (08:45)
[2020-02-19] MEDS: PANCRELIPASE 24,000 CAPSULE.DR PO SCH ×3 (08:45→22:17)
[2020-02-19] MEDS: PANTOPRAZOLE 40 MG IV IVPush SCH ×2 (08:45→22:17)
[2020-02-19 09:18] LABS: ALBUMIN 2.5 g/dL (3.4-5.0); ANION GAP 16 mmol/L (5-15); CALCIUM 9.8 mg/dL (8.5-10.1); CHLORIDE 106 mmol/L (98-107)
[2020-02-19 09:24] LABS: ALANINE AMINOTRANSFERASE 24 U/L (12-78); ALKALINE PHOSPHATASE 342 U/L (45-117); BILIRUBIN,TOTAL 0.3 mg/dL (0.2-1.0); CREATININE 0.85 mg/dL (0.7-1.3)
[2020-02-19 09:25] VITALS: BP 167/90
[2020-02-19 12:35] VITALS: BP 169/101
[2020-02-19 20:05] VITALS: BP 162/99
[2020-02-19 22:44] VITALS: BP 141/71
[2020-02-20 01:17] VITALS: BP 131/90
[2020-02-20] MEDS: LACTATED RINGERS 1,000 ML IV SCH ×2 (01:30→09:51)
[2020-02-20] MEDS: HYDROmorphone 2 MG/ML, 1ML IVPush PRN ×3 (01:31→08:24)
[2020-02-20] MEDS: KETOROLAC 30 MG/1 ML IVPush SCH ×3 (05:00→16:19)
[2020-02-20 07:33] VITALS: BP 169/111
[2020-02-20] MEDS: PANTOPRAZOLE 40 MG IV IVPush SCH (08:23)
[2020-02-20] MEDS: PANCRELIPASE 24,000 CAPSULE.DR PO SCH ×3 (08:24→18:33)
[2020-02-20] MEDS: ENOXAPARIN 40 MG/0.4 ML SQ SCH (08:24)
[2020-02-20] MEDS: INSULIN LISPRO 100 UNITS/ML, PEN SQ-INSULIN SCH ×4 (08:25→20:03)
[2020-02-20 09:51] LABS: ALBUMIN 2.7 g/dL (3.4-5.0); ANION GAP 10 mmol/L (5-15); CALCIUM 10.4 mg/dL (8.5-10.1); CHLORIDE 103 mmol/L (98-107)
[2020-02-20 09:54] LABS: ALANINE AMINOTRANSFERASE 32 U/L (12-78); ALKALINE PHOSPHATASE 581 U/L (45-117); BILIRUBIN,TOTAL 0.5 mg/dL (0.2-1.0); CREATININE 0.82 mg/dL (0.7-1.3); TOTAL PROTEIN 8.2 g/dL (6.4-8.2)
[2020-02-20] MEDS: OXYcodone/APAP 10/325MG TABLET PO PRN ×3 (11:00→19:51)
[2020-02-20 13:57] VITALS: BP 177/94
[2020-02-20] MEDS: GABAPENTIN 300 MG CAPSULE PO SCH ×2 (16:19→19:51)
[2020-02-20] MEDS ORDERED: POTASSIUM CHLORIDE 20 MEQ TAB.ER.PRT PO ONE (16:30)
[2020-02-20] MEDS: PANTOPRAZOLE 40MG TABLET PO SCH (18:00)
[2020-02-20 18:52] VITALS: BP 168/83
[2020-02-20 21:49] VITALS: BP 143/94
[2020-02-21] VITALS: BP 156/89
[2020-02-21] MEDS: OXYcodone/APAP 10/325MG TABLET PO PRN ×3 (00:01→10:54)
[2020-02-21] MEDS: PANTOPRAZOLE 40MG TABLET PO SCH (05:52)
[2020-02-21 06:30] VITALS: BP 151/88
[2020-02-21] MEDS: HYDROmorphone 2 MG/ML, 1ML IVPush PRN (07:53)
[2020-02-21] MEDS: MAGNESIUM HYDROXIDE 8%, 30ML UDC PO PRN (08:29)
[2020-02-21] MEDS: GABAPENTIN 300 MG CAPSULE PO SCH (08:30)
[2020-02-21] MEDS: PANCRELIPASE 24,000 CAPSULE.DR PO SCH ×2 (08:30→10:54)
[2020-02-21] MEDS: ENOXAPARIN 40 MG/0.4 ML SQ SCH (08:30)
[2020-02-21] MEDS: INSULIN LISPRO 100 UNITS/ML, PEN SQ-INSULIN SCH ×2 (08:31→11:32)
[2020-02-21] MEDS ORDERED: LIPA1CAP61 PO (10:29)
[2020-02-21] MEDS ORDERED: OXYC-432 PO (10:29)
[2020-02-21] MEDS ORDERED: INSU100I11 SQ-INSULIN (10:29)
[2020-02-21 10:41] LABS: ALANINE AMINOTRANSFERASE 45 U/L (12-78); ALBUMIN 2.3 g/dL (3.4-5.0); ANION GAP 6 mmol/L (5-15); CALCIUM 9.3 mg/dL (8.5-10.1); CHLORIDE 102 mmol/L (98-107); CREATININE 0.73 mg/dL (0.7-1.3)
[2020-02-21 11:01] LABS: ALKALINE PHOSPHATASE 489 U/L (45-117); TOTAL PROTEIN 7.7 g/dL (6.4-8.2)
== END 2020-02-21 14:27 | disposition home or self-care (01) | DRG 439 ==
LOC: ED 11:47 → EDIP 13:36 → 4NE 14:53 → 3N 02-15 06:39 → DCLOUNGE 02-21 14:12
PROVIDERS: ADMIT Internal Medicine; ATTEND Internal Medicine
DX: K85.30 Drug induced acute pancreatitis without necrosis or infection (principal); E46 Unspecified protein-calorie malnutrition; E11.65 Type 2 diabetes mellitus with hyperglycemia; K86.1 Other chronic pancreatitis; E78.1 Pure hyperglyceridemia; E78.5 Hyperlipidemia, unspecified; E83.39 Other disorders of phosphorus metabolism; E83.42 Hypomagnesemia; E87.6 Hypokalemia; G89.29 Other chronic pain; I10 Essential (primary) hypertension; K59.00 Constipation, unspecified; Z83.3 Family history of diabetes mellitus; K76.0 Fatty (change of) liver, not elsewhere classified; Z68.30 Body mass index [BMI] 30.0-30.9, adult
CPT/HCPCS: 36415; 36600; 74021; 96361; 96374; 96375; 96376; 99285; J3490; 74177; 76700; 80053; 80061; 80307; 81003; 82010; 82800; 82947; 82962; 83036; 83605; 83690; 83735; 84100; 84443; 84478; 85025; 85651; 93005; G0378; J1170; J1650; J1885; J2405; J3480; J7070; Q9967; C9113; J0360; J1815; J3475; J7030; J7040; J7120

== ENCOUNTER 2020-03-07 16:36 | Observation (INO) | payer MEDICAID ==
[~2020-03-07] VITALS: Ht 172.7 cm; Wt 80.5 kg
[~2020-03-07 16:36] MED LIST changes: +DOCU-131 PO; +ERTU1TAB11 PO; +INSU100I11 SQ-INSULIN; +MULT-658 PO; +OXYC-432 PO
[2020-03-07] MEDS ORDERED: ONDANSETRON 2MG/ML, 2ML IVPush ONE (17:30)
[2020-03-07] MEDS ORDERED: SODIUM CHLORIDE 0.9% 1,000ML IVBOLUS ONE ×2 (17:30→22:00)
[2020-03-07] MEDS ORDERED: ONDANSETRON 2MG/ML, 2ML ONE (17:40)
[2020-03-07] MEDS ORDERED: HYDROmorphone 1 MG/ML, 1ML INJ ONE ×2 (17:40→18:34)
[2020-03-07 17:45] LABS: BASOPHILS # (AUTO) 0.08 x10^3/uL (0-0.1); BASOPHILS % (AUTO) 1 % (0-1); EOSINOPHILS # (AUTO) 0.04 x10^3/uL (0-0.4); EOSINOPHILS % (AUTO) 1 % (1-7); LYMPHOCYTES # (AUTO) 1.44 x10^3/uL (1-3.4); LYMPHOCYTES % (AUTO) 16 % (22-44); MD NO; MEAN CORPUSCULAR HEMOGLOBIN 30.8 pg (27.5-34.5); MEAN CORPUSCULAR HGB CONC 33.9 g/dL (33.2-36.2); MEAN CORPUSCULAR VOLUME 90.7 fL (81-97); MEAN PLATELET VOLUME 7.8 fL (7.4-10.4); MONOCYTES # (AUTO) 0.64 x10^3/uL (0.2-0.8); MONOCYTES % (AUTO) 7 % (2-9); NEUTROPHILS # (AUTO) 6.98 x10^3/uL (1.8-6.8); NEUTROPHILS % (AUTO) 76 % (42-75); PLATELET COUNT 603 x10^3/uL (130-400); RED BLOOD COUNT 4.45 x10^6/uL (4.38-5.82); RED CELL DISTRIBUTION WIDTH 14.3 % (9.4-14.8)
[2020-03-07] MEDS: HYDROmorphone 2 MG/ML, 1ML IVPush PRN ×2 (17:47→18:49)
[2020-03-07 18:24] LABS: ALANINE AMINOTRANSFERASE 43 U/L (12-78); ALBUMIN 2.3 g/dL (3.4-5.0); ANION GAP 18 mmol/L (5-15); CALCIUM 9.7 mg/dL (8.5-10.1); CHLORIDE 100 mmol/L (98-107); CREATININE 0.89 mg/dL (0.7-1.3)
[2020-03-07 18:37] LABS: ALKALINE PHOSPHATASE 993 U/L (45-117); TOTAL PROTEIN 9.1 g/dL (6.4-8.2)
[2020-03-07] MEDS ORDERED: ERTU1TAB11 PO (19:01)
[2020-03-07] MEDS ORDERED: DULA1.5P INJ (19:01)
[2020-03-07] MEDS ORDERED: TURM500C4 PO (19:01)
[2020-03-07] MEDS ORDERED: TRAM50TA2 PO (19:01)
[2020-03-07] MEDS ORDERED: DIPH-423 PO (19:02)
--- NOTE | 2020-03-07 19:03 | NUR ---
REPORT FROM GRACIE CONTE. PT RESTING AND PAIN CONTROLLED. MED REC COMPLETE. PT HAS NO OTHER NEEDS AT THIS TIME. CALL LIGHT IN REACH
[2020-03-07] MEDS ORDERED: OMNIPAQUE 350 MG/ML, 100ML BOTTLE ONE (19:21)
--- NOTE | 2020-03-07 19:30 | NUR ---
PT AT CT
[2020-03-07] MEDS ORDERED: MORPHINE SULFATE 4 MG/ML, 1ML IVPush PRN (20:00)
[2020-03-07] MEDS ORDERED: ERTUGLIFLOZIN HOMEMEDPO SCH (21:00)
[2020-03-07] MEDS ORDERED: POLYETHYLENE GLYCOL 17 GM PACKET PO PRN (21:00)
[2020-03-07] MEDS ORDERED: BISACODYL 10 MG SUPP PR PRN (21:00)
[2020-03-07] MEDS ORDERED: [UNRECOGNIZED DRUG - OTHER] HOMEMEDPO SCH (21:00)
[2020-03-07] MEDS ORDERED: LACTATED RINGERS 1,000 ML IV SCH (21:00)
[2020-03-07] MEDS ORDERED: ONDANSETRON 2MG/ML, 2ML IVPush PRN (21:00)
[2020-03-07] MEDS ORDERED: DIPHENHYDRAMINE 25 MG CAPSULE PO PRN (21:00)
[2020-03-07] MEDS ORDERED: METFORMIN HOMEMEDPO SCH (21:00)
[2020-03-07] MEDS ORDERED: GLIMEPIRIDE 1 MG TABLET PO SCH (21:00)
[2020-03-07] MEDS ORDERED: SODIUM CHLORIDE 0.9% 1,000 ML IV ONE (21:00)
[2020-03-07] MEDS ORDERED: OXYcodone IR 5MG TABLET PO PRN (21:00)
[2020-03-07] MEDS ORDERED: MELATONIN 5 MG TABLET PO PRN (21:00)
[2020-03-07] MEDS ORDERED: SODIUM CHLORIDE FLUSH 10ML SYR IVF PRN (21:00)
[2020-03-07] MEDS: INSULIN LISPRO 100 UNITS/ML, PEN SQ-INSULIN SCH (21:00)
[2020-03-07 21:27] VITALS: BP 174/94
[2020-03-07] MEDS: HYDROmorphone 1 MG/ML, 1ML INJ IVPush PRN (21:56)
[2020-03-07 22:16] LABS: ACETONE, SERUM Large (80mg/dL) (Negative)
[2020-03-07] MEDS ORDERED: SODIUM CHLORIDE 0.9% 1,000 ML IV SCH (22:30)
[2020-03-07] MEDS: FAMOTIDINE 20 MG/2 ML IVPush SCH (22:43)
[2020-03-07] MEDS: METOPROLOL TARTRATE 100 MG TAB PO SCH (22:44)
[2020-03-07 22:45] LABS: MICROSCOPIC AUTO
[2020-03-07 23:01] VITALS: BP 156/70
[2020-03-08 00:36] VITALS: BP 110/57
[2020-03-08 00:37] LABS: ANION GAP 15 mmol/L (5-15); CALCIUM 10.3 mg/dL (8.5-10.1); CHLORIDE 101 mmol/L (98-107); CREATININE 0.92 mg/dL (0.7-1.3)
[2020-03-08] MEDS: HYDROmorphone 1 MG/ML, 1ML INJ IVPush PRN ×4 (01:13→12:03)
[2020-03-08] MEDS: INSULIN LISPRO 100 UNITS/ML, PEN SQ-INSULIN SCH ×3 (01:14→13:25)
[2020-03-08] MEDS: LACTATED RINGERS 1,000 ML IV SCH ×3 (02:00→15:20)
[2020-03-08 06:20] LABS: BASOPHILS # (AUTO) 0.12 x10^3/uL (0-0.1); BASOPHILS % (AUTO) 1 % (0-1); EOSINOPHILS # (AUTO) 0.15 x10^3/uL (0-0.4); EOSINOPHILS % (AUTO) 2 % (1-7); LYMPHOCYTES # (AUTO) 1.29 x10^3/uL (1-3.4); LYMPHOCYTES % (AUTO) 14 % (22-44); MD NO; MEAN CORPUSCULAR HEMOGLOBIN 30.4 pg (27.5-34.5); MEAN CORPUSCULAR VOLUME 92.1 fL (81-97); MEAN PLATELET VOLUME 8.1 fL (7.4-10.4); MONOCYTES # (AUTO) 0.48 x10^3/uL (0.2-0.8); MONOCYTES % (AUTO) 5 % (2-9); NEUTROPHILS # (AUTO) 7.17 x10^3/uL (1.8-6.8); NEUTROPHILS % (AUTO) 78 % (42-75); PLATELET COUNT 524 x10^3/uL (130-400); RED CELL DISTRIBUTION WIDTH 13.8 % (9.4-14.8)
[2020-03-08 06:21] LABS: ANION GAP 12 mmol/L (5-15); CALCIUM 9.4 mg/dL (8.5-10.1); CHLORIDE 104 mmol/L (98-107)
[2020-03-08 06:24] LABS: ALANINE AMINOTRANSFERASE 33 U/L (12-78); ALKALINE PHOSPHATASE 887 U/L (45-117); BILIRUBIN,TOTAL 0.9 mg/dL (0.2-1.0); CHOL/HDL RATIO 4.4; CHOLESTEROL, TOTAL 160 mg/dL (140-239); CREATININE 0.72 mg/dL (0.7-1.3); HDL CHOL % 23 % (26-37); HDL CHOLESTEROL (DIRECT) 36 mg/dL (40-60); LDL CHOLESTEROL,CALCULATED 99 mg/dL (54-169); LDL/HDL RATIO 2.8 (0.5-3.0); TOTAL PROTEIN 7.9 g/dL (6.4-8.2); TRIGLYCERIDES 126 mg/dL (50-200); VLDL CHOLESTEROL 25 mg/dL (0-25)
[2020-03-08 06:35] VITALS: BP 102/66
[2020-03-08] MEDS: FAMOTIDINE 20 MG/2 ML IVPush SCH (08:52)
[2020-03-08] MEDS: METOPROLOL TARTRATE 100 MG TAB PO SCH ×2 (08:57→09:00)
[2020-03-08] MEDS: PANCRELIPASE 24,000 CAPSULE.DR PO SCH ×3 (08:58→16:10)
[2020-03-08] MEDS ORDERED: MULTIVITAMIN 1 TABLET PO SCH (09:00)
[2020-03-08] MEDS ORDERED: SENNA/DOCUSATE TABLET PO SCH (09:00)
[2020-03-08] MEDS ORDERED: DOCUSATE 100 MG CAPSULE PO SCH (09:00)
[2020-03-08] MEDS ORDERED: OMEPRAZOLE 20 MG CAPSULE.DR PO SCH (09:00)
[2020-03-08] MEDS ORDERED: OXYcodone IR 5MG TABLET PO PRN (13:00)
[2020-03-08] MEDS ORDERED: TRAM50TA2 PO (13:27)
[2020-03-08] MEDS ORDERED: DOCU-131 PO (13:27)
[2020-03-08] MEDS ORDERED: ERTU1TAB11 PO (13:27)
[2020-03-08] MEDS ORDERED: OXYC10TA6 PO (13:27)
[2020-03-08] MEDS ORDERED: OMEP40CA42 PO (13:27)
[2020-03-08] MEDS ORDERED: LIPA1CAP61 PO (13:27)
[2020-03-08] MEDS ORDERED: METO100T7 PO (13:27)
[2020-03-08 14:56] VITALS: BP 130/76
[2020-03-08] MEDS ORDERED: MORPHINE SULFATE 4 MG/ML, 1ML IVPush PRN (16:00)
== END 2020-03-08 17:09 | disposition home or self-care (01) ==
LOC: ED 18:32 → INTOOBSV 19:58 → EDIP 19:58 → 3N 21:13
PROVIDERS: ADMIT Family Medicine; ATTEND Hospitalist
DX: K86.1 Other chronic pancreatitis (principal); K86.3 Pseudocyst of pancreas; K85.90 Acute pancreatitis without necrosis or infection, unspecified; E11.65 Type 2 diabetes mellitus with hyperglycemia; E11.10 Type 2 diabetes mellitus with ketoacidosis without coma; K21.9 Gastro-esophageal reflux disease without esophagitis; K50.90 Crohn's disease, unspecified, without complications; K76.0 Fatty (change of) liver, not elsewhere classified; K85.00 Idiopathic acute pancreatitis without necrosis or infection; D47.3 Essential (hemorrhagic) thrombocythemia; E87.1 Hypo-osmolality and hyponatremia; R74.8 Abnormal levels of other serum enzymes; E44.0 Moderate protein-calorie malnutrition; R63.4 Abnormal weight loss; I10 Essential (primary) hypertension; L40.50 Arthropathic psoriasis, unspecified; H54.7 Unspecified visual loss; E87.2 Acidosis; Q45.3 Other congenital malformations of pancreas and pancreatic duct; Z86.010 Personal history of colon polyps; Z86.19 Personal history of other infectious and parasitic diseases; Z79.899 Other long term (current) drug therapy
CPT/HCPCS: 36415; 36600; 74177; 80048; 80053; 80061; 81001; 82010; 82803; 82962; 83605; 83690; 85025; 93005; 96361; 96374; 96375; 96376; 99285; G0378; J1170; J1815; J2405; J3490; J7030; J7120; Q9967

== ENCOUNTER 2020-03-19 09:21 | Inpatient (IN) | payer MEDICAID ==
[~2020-03-19] VITALS: Ht 172.7 cm; Wt 80.9 kg
[~2020-03-19 09:21] MED LIST changes: +DIPH-423 PO; +OXYC10TA6 PO; +TURM500C4 PO
[2020-03-19] MEDS ORDERED: MORPHINE SULFATE 4 MG/ML, 1ML ONE ×2 (10:08→10:50)
[2020-03-19] MEDS ORDERED: ONDANSETRON 2MG/ML, 2ML ONE (10:09)
[2020-03-19] MEDS: MORPHINE SULFATE 4 MG/ML, 1ML IVPush PRN ×2 (10:28→10:58)
[2020-03-19] MEDS ORDERED: SODIUM CHLORIDE 0.9% 1,000ML IVBOLUS ONE (10:30)
[2020-03-19] MEDS ORDERED: SODIUM CHLORIDE FLUSH 10ML SYR IVF ONE (10:30)
[2020-03-19] MEDS ORDERED: ONDANSETRON 2MG/ML, 2ML IVPush ONE (10:30)
[2020-03-19 10:31] LABS: ALANINE AMINOTRANSFERASE 12 U/L (12-78); ALBUMIN 2.3 g/dL (3.4-5.0); ANION GAP 13 mmol/L (5-15); CALCIUM 9.8 mg/dL (8.5-10.1); CHLORIDE 97 mmol/L (98-107); CREATININE 0.57 mg/dL (0.7-1.3)
[2020-03-19 10:32] LABS: BASOPHILS # (AUTO) 0.03 x10^3/uL (0-0.1); BASOPHILS % (AUTO) 0 % (0-1); EOSINOPHILS # (AUTO) 0.02 x10^3/uL (0-0.4); EOSINOPHILS % (AUTO) 0 % (1-7); LYMPHOCYTES # (AUTO) 2.26 x10^3/uL (1-3.4); LYMPHOCYTES % (AUTO) 23 % (22-44); MD NO; MEAN CORPUSCULAR HEMOGLOBIN 29.6 pg (27.5-34.5); MEAN CORPUSCULAR HGB CONC 32.5 g/dL (33.2-36.2); MEAN CORPUSCULAR VOLUME 91.1 fL (81-97); MEAN PLATELET VOLUME 7.7 fL (7.4-10.4); MONOCYTES # (AUTO) 0.62 x10^3/uL (0.2-0.8); MONOCYTES % (AUTO) 6 % (2-9); NEUTROPHILS # (AUTO) 7.04 x10^3/uL (1.8-6.8); NEUTROPHILS % (AUTO) 71 % (42-75); PLATELET COUNT 486 x10^3/uL (130-400); RED BLOOD COUNT 4.08 x10^6/uL (4.38-5.82); RED CELL DISTRIBUTION WIDTH 13.4 % (9.4-14.8)
[2020-03-19 10:33] LABS: ALKALINE PHOSPHATASE 413 U/L (45-117); BILIRUBIN,TOTAL 0.5 mg/dL (0.2-1.0)
[2020-03-19] MEDS ORDERED: HYDROmorphone 2 MG/ML, 1ML ONE (11:42)
[2020-03-19 11:46] LABS: MICROSCOPIC NOT IND
[2020-03-19] MEDS: HYDROmorphone 2 MG/ML, 1ML IVPush PRN ×2 (11:46→12:25)
[2020-03-19] MEDS ORDERED: ONDANSETRON 2MG/ML, 2ML IVPush PRN (12:30)
[2020-03-19] MEDS ORDERED: BISACODYL 10 MG SUPP PR PRN (12:30)
[2020-03-19] MEDS ORDERED: LABETALOL 5MG/ML, 20ML IVPush PRN (12:30)
[2020-03-19] MEDS ORDERED: LIDODERM 5% PATCH TD PRN (12:30)
[2020-03-19] MEDS ORDERED: hydrALAzine 20 MG/ML, 1ML IVPush PRN (12:30)
[2020-03-19 13:18] LABS: FREE T4 (FREE THYROXINE) 1.25 ng/dL (0.76-1.46)
[2020-03-19] MEDS ORDERED: ADAL40PE2 SQ (13:54)
[2020-03-19] MEDS: D5%-0.45NACL+KCL 20MEQ 1,000 ML IV SCH ×2 (15:00→22:41)
[2020-03-19] MEDS: HEPARIN 5,000 UNITS/ML, 1ML SQ SCH ×2 (15:00→23:46)
[2020-03-19] MEDS: morphine SULFATE 10 MG/ML, 1ML IVPush PRN ×3 (15:01→21:28)
[2020-03-19 15:59] VITALS: BP 120/75
[2020-03-19] MEDS: INSULIN LISPRO 100 UNITS/ML, PEN SQ-INSULIN SCH ×2 (17:49→20:07)
[2020-03-19 20:45] VITALS: BP 130/78
[2020-03-20 00:11] VITALS: BP 158/67
[2020-03-20] MEDS: morphine SULFATE 10 MG/ML, 1ML IVPush PRN ×8 (00:26→23:34)
[2020-03-20 06:10] LABS: BASOPHILS # (AUTO) 0.04 x10^3/uL (0-0.1); BASOPHILS % (AUTO) 0 % (0-1); EOSINOPHILS # (AUTO) 0.03 x10^3/uL (0-0.4); EOSINOPHILS % (AUTO) 0 % (1-7); LYMPHOCYTES # (AUTO) 2.62 x10^3/uL (1-3.4); LYMPHOCYTES % (AUTO) 28 % (22-44); MD NO; MEAN CORPUSCULAR HEMOGLOBIN 29.8 pg (27.5-34.5); MEAN CORPUSCULAR HGB CONC 32.7 g/dL (33.2-36.2); MEAN PLATELET VOLUME 8.2 fL (7.4-10.4); MONOCYTES # (AUTO) 0.69 x10^3/uL (0.2-0.8); MONOCYTES % (AUTO) 7 % (2-9); NEUTROPHILS # (AUTO) 6.06 x10^3/uL (1.8-6.8); NEUTROPHILS % (AUTO) 64 % (42-75); PLATELET COUNT 420 x10^3/uL (130-400); RED BLOOD COUNT 3.78 x10^6/uL (4.38-5.82); RED CELL DISTRIBUTION WIDTH 13.6 % (9.4-14.8)
[2020-03-20 06:19] LABS: CHLORIDE 100 mmol/L (98-107)
[2020-03-20 06:30] LABS: ALANINE AMINOTRANSFERASE 10 U/L (12-78); ALKALINE PHOSPHATASE 312 U/L (45-117); ANION GAP 14 mmol/L (5-15); BILIRUBIN,TOTAL 0.4 mg/dL (0.2-1.0); CALCIUM 8.9 mg/dL (8.5-10.1); CHOL/HDL RATIO 4.6; CHOLESTEROL, TOTAL 138 mg/dL (140-239); HDL CHOL % 22 % (26-37); HDL CHOLESTEROL (DIRECT) 30 mg/dL (40-60); LDL CHOLESTEROL,CALCULATED 76 mg/dL (54-169); LDL/HDL RATIO 2.5 (0.5-3.0); TOTAL PROTEIN 8.1 g/dL (6.4-8.2); TRIGLYCERIDES 159 mg/dL (50-200); VLDL CHOLESTEROL 32 mg/dL (0-25)
[2020-03-20] MEDS: D5%-0.45NACL+KCL 20MEQ 1,000 ML IV SCH ×3 (06:34→23:45)
[2020-03-20] MEDS: HEPARIN 5,000 UNITS/ML, 1ML SQ SCH ×4 (07:00→22:10)
[2020-03-20 07:10] VITALS: BP 159/83
[2020-03-20 07:45] LABS: C-REACTIVE PROTEIN, QUANT 9.9 mg/dL (0.02-0.49)
[2020-03-20] MEDS: PANTOPRAZOLE 40 MG IV IVPush SCH (09:44)
[2020-03-20] MEDS: INSULIN LISPRO 100 UNITS/ML, PEN SQ-INSULIN SCH ×4 (09:45→20:20)
[2020-03-20 13:15] VITALS: BP 165/95
[2020-03-20] MEDS: PANCRELIPASE 24,000 CAPSULE.DR PO SCH (17:00)
[2020-03-20 19:42] VITALS: BP 161/93
[2020-03-20] MEDS: ERTUGLIFLOZIN PO SCH (20:18)
[2020-03-20] MEDS: METFORMIN PO SCH (20:18)
[2020-03-20] MEDS: METOPROLOL TARTRATE 100 MG TAB PO SCH (20:19)
[2020-03-20] MEDS: GLIMEPIRIDE 1 MG TABLET PO SCH (20:19)
[2020-03-21 01:18] VITALS: BP 136/79
[2020-03-21] MEDS: morphine SULFATE 10 MG/ML, 1ML IVPush PRN ×6 (02:44→22:33)
[2020-03-21 05:19] LABS: BASOPHILS # (AUTO) 0.08 x10^3/uL (0-0.1); BASOPHILS % (AUTO) 1 % (0-1); EOSINOPHILS # (AUTO) 0.04 x10^3/uL (0-0.4); EOSINOPHILS % (AUTO) 0 % (1-7); LYMPHOCYTES # (AUTO) 2.43 x10^3/uL (1-3.4); LYMPHOCYTES % (AUTO) 25 % (22-44); MD NO; MEAN CORPUSCULAR HEMOGLOBIN 29.9 pg (27.5-34.5); MEAN CORPUSCULAR HGB CONC 32.9 g/dL (33.2-36.2); MEAN PLATELET VOLUME 7.7 fL (7.4-10.4); MONOCYTES # (AUTO) 0.74 x10^3/uL (0.2-0.8); MONOCYTES % (AUTO) 8 % (2-9); NEUTROPHILS % (AUTO) 66 % (42-75); PLATELET COUNT 466 x10^3/uL (130-400); RED BLOOD COUNT 4.14 x10^6/uL (4.38-5.82); RED CELL DISTRIBUTION WIDTH 13.7 % (9.4-14.8)
[2020-03-21 05:21] LABS: HCT (SEDRATE) 37.5 % (39.2-51.8)
[2020-03-21 05:28] LABS: ALANINE AMINOTRANSFERASE 8 U/L (12-78); ALBUMIN 2.1 g/dL (3.4-5.0); ANION GAP 10 mmol/L (5-15); CALCIUM 9.5 mg/dL (8.5-10.1); CHLORIDE 100 mmol/L (98-107); CREATININE 0.61 mg/dL (0.7-1.3)
[2020-03-21 05:35] LABS: ALKALINE PHOSPHATASE 301 U/L (45-117); BILIRUBIN,TOTAL 0.4 mg/dL (0.2-1.0); TOTAL PROTEIN 8.4 g/dL (6.4-8.2)
[2020-03-21] MEDS: HEPARIN 5,000 UNITS/ML, 1ML SQ SCH ×3 (05:50→22:34)
[2020-03-21 06:38] VITALS: BP 147/82
[2020-03-21] MEDS: ERTUGLIFLOZIN PO SCH ×2 (07:38→21:00)
[2020-03-21] MEDS: METFORMIN PO SCH ×2 (07:38→21:00)
[2020-03-21] MEDS: PANCRELIPASE 24,000 CAPSULE.DR PO SCH ×3 (08:00→17:00)
[2020-03-21] MEDS: GLIMEPIRIDE 1 MG TABLET PO SCH ×2 (08:54→21:50)
[2020-03-21] MEDS: D5%-0.45NACL+KCL 20MEQ 1,000 ML IV SCH ×2 (08:54→22:33)
[2020-03-21] MEDS: METOPROLOL TARTRATE 100 MG TAB PO SCH ×2 (08:55→21:49)
[2020-03-21] MEDS: DOCUSATE 100 MG CAPSULE PO SCH (08:55)
[2020-03-21] MEDS: MULTIVITAMINS/MINERALS TABLET PO SCH (08:55)
[2020-03-21] MEDS: INSULIN LISPRO 100 UNITS/ML, PEN SQ-INSULIN SCH ×4 (08:56→22:33)
[2020-03-21] MEDS: PANTOPRAZOLE 40 MG IV IVPush SCH (08:56)
[2020-03-21] MEDS: GABAPENTIN 300 MG CAPSULE PO SCH ×2 (17:31→23:09)
[2020-03-21] MEDS: OXYcodone IR 5MG TABLET PO PRN (17:31)
[2020-03-22] MEDS: morphine SULFATE 10 MG/ML, 1ML IVPush PRN ×6 (01:51→20:16)
[2020-03-22 01:58] VITALS: BP 112/72
[2020-03-22] MEDS: OXYcodone IR 5MG TABLET PO PRN ×3 (02:44→22:20)
[2020-03-22] MEDS: HEPARIN 5,000 UNITS/ML, 1ML SQ SCH ×3 (05:46→22:20)
[2020-03-22 06:15] LABS: ALBUMIN 2.1 g/dL (3.4-5.0); ANION GAP 10 mmol/L (5-15); CALCIUM 9.5 mg/dL (8.5-10.1); CHLORIDE 101 mmol/L (98-107)
[2020-03-22 06:18] LABS: BASOPHILS # (AUTO) 0.06 x10^3/uL (0-0.1); BASOPHILS % (AUTO) 1 % (0-1); EOSINOPHILS # (AUTO) 0.11 x10^3/uL (0-0.4); EOSINOPHILS % (AUTO) 1 % (1-7); LYMPHOCYTES # (AUTO) 3.24 x10^3/uL (1-3.4); LYMPHOCYTES % (AUTO) 28 % (22-44); MD NO; MEAN CORPUSCULAR HEMOGLOBIN 29.9 pg (27.5-34.5); MEAN CORPUSCULAR VOLUME 90.7 fL (81-97); MEAN PLATELET VOLUME 7.7 fL (7.4-10.4); MONOCYTES # (AUTO) 0.79 x10^3/uL (0.2-0.8); MONOCYTES % (AUTO) 7 % (2-9); NEUTROPHILS # (AUTO) 7.46 x10^3/uL (1.8-6.8); NEUTROPHILS % (AUTO) 64 % (42-75); PLATELET COUNT 496 x10^3/uL (130-400); RED BLOOD COUNT 4.18 x10^6/uL (4.38-5.82); RED CELL DISTRIBUTION WIDTH 13.8 % (9.4-14.8)
[2020-03-22 06:20] LABS: ALANINE AMINOTRANSFERASE 9 U/L (12-78); ALKALINE PHOSPHATASE 300 U/L (45-117); BILIRUBIN,TOTAL 0.4 mg/dL (0.2-1.0); CREATININE 0.53 mg/dL (0.7-1.3); TOTAL PROTEIN 8.2 g/dL (6.4-8.2)
[2020-03-22] MEDS: D5%-0.45NACL+KCL 20MEQ 1,000 ML IV SCH ×2 (06:28→17:03)
[2020-03-22] MEDS: PANCRELIPASE 24,000 CAPSULE.DR PO SCH ×3 (08:00→17:06)
[2020-03-22] MEDS: METFORMIN PO SCH ×2 (08:44→19:14)
[2020-03-22] MEDS: ERTUGLIFLOZIN PO SCH ×2 (08:44→19:14)
[2020-03-22] MEDS: PANTOPRAZOLE 40 MG IV IVPush SCH (09:19)
[2020-03-22] MEDS: GABAPENTIN 300 MG CAPSULE PO SCH ×3 (09:25→20:16)
[2020-03-22] MEDS: DOCUSATE 100 MG CAPSULE PO SCH (09:26)
[2020-03-22] MEDS: METOPROLOL TARTRATE 100 MG TAB PO SCH ×2 (09:28→20:16)
[2020-03-22] MEDS: MULTIVITAMINS/MINERALS TABLET PO SCH (09:29)
[2020-03-22] MEDS: GLIMEPIRIDE 1 MG TABLET PO SCH ×2 (09:29→20:16)
[2020-03-22] MEDS: INSULIN LISPRO 100 UNITS/ML, PEN SQ-INSULIN SCH ×4 (09:31→20:49)
[2020-03-22 09:34] VITALS: BP 128/71
[2020-03-22 13:53] VITALS: BP 120/81
[2020-03-22 19:34] VITALS: BP 128/80
[2020-03-23] MEDS: morphine SULFATE 10 MG/ML, 1ML IVPush PRN ×7 (00:22→22:42)
[2020-03-23 00:59] VITALS: BP 147/63
[2020-03-23] MEDS: D5%-0.45NACL+KCL 20MEQ 1,000 ML IV SCH ×3 (01:13→21:06)
[2020-03-23] MEDS: OXYcodone IR 5MG TABLET PO PRN ×2 (06:04→11:47)
[2020-03-23 06:25] LABS: BASOPHILS # (AUTO) 0.06 x10^3/uL (0-0.1); BASOPHILS % (AUTO) 1 % (0-1); EOSINOPHILS # (AUTO) 0.06 x10^3/uL (0-0.4); EOSINOPHILS % (AUTO) 1 % (1-7); LYMPHOCYTES # (AUTO) 2.44 x10^3/uL (1-3.4); LYMPHOCYTES % (AUTO) 20 % (22-44); MD NO; MEAN CORPUSCULAR HEMOGLOBIN 29.7 pg (27.5-34.5); MEAN CORPUSCULAR HGB CONC 32.9 g/dL (33.2-36.2); MEAN CORPUSCULAR VOLUME 90.3 fL (81-97); MEAN PLATELET VOLUME 7.8 fL (7.4-10.4); MONOCYTES # (AUTO) 0.86 x10^3/uL (0.2-0.8); MONOCYTES % (AUTO) 7 % (2-9); NEUTROPHILS # (AUTO) 8.67 x10^3/uL (1.8-6.8); NEUTROPHILS % (AUTO) 72 % (42-75); PLATELET COUNT 429 x10^3/uL (130-400); RED BLOOD COUNT 4.31 x10^6/uL (4.38-5.82); RED CELL DISTRIBUTION WIDTH 13.9 % (9.4-14.8)
[2020-03-23 06:31] LABS: ANION GAP 8 mmol/L (5-15); CALCIUM 8.9 mg/dL (8.5-10.1); CHLORIDE 97 mmol/L (98-107); CREATININE 0.61 mg/dL (0.7-1.3)
[2020-03-23 07:34] VITALS: BP 137/95
[2020-03-23] MEDS: ERTUGLIFLOZIN PO SCH ×2 (09:00→21:00)
[2020-03-23] MEDS: METFORMIN PO SCH ×2 (09:00→21:00)
[2020-03-23] MEDS: GLIMEPIRIDE 1 MG TABLET PO SCH ×2 (09:29→21:06)
[2020-03-23] MEDS: PANCRELIPASE 24,000 CAPSULE.DR PO SCH ×3 (09:30→17:00)
[2020-03-23] MEDS: HEPARIN 5,000 UNITS/ML, 1ML SQ SCH ×3 (09:30→23:00)
[2020-03-23] MEDS: PANTOPRAZOLE 40 MG IV IVPush SCH (09:30)
[2020-03-23] MEDS: MULTIVITAMINS/MINERALS TABLET PO SCH (09:30)
[2020-03-23] MEDS: DOCUSATE 100 MG CAPSULE PO SCH (09:31)
[2020-03-23] MEDS: GABAPENTIN 300 MG CAPSULE PO SCH ×3 (09:31→21:07)
[2020-03-23] MEDS: METOPROLOL TARTRATE 100 MG TAB PO SCH ×2 (09:31→21:07)
[2020-03-23] MEDS: INSULIN LISPRO 100 UNITS/ML, PEN SQ-INSULIN SCH ×4 (09:46→21:08)
[2020-03-23 14:07] VITALS: BP 123/77
[2020-03-23] MEDS ORDERED: MAGNESIUM SULFATE PMX 2GM/50ML 50 ML IV ONE (17:00)
[2020-03-23 19:00] VITALS: BP 159/97
[2020-03-24 00:58] VITALS: BP 135/81
[2020-03-24] MEDS: morphine SULFATE 10 MG/ML, 1ML IVPush PRN ×3 (03:51→21:44)
[2020-03-24] MEDS: D5%-0.45NACL+KCL 20MEQ 1,000 ML IV SCH (04:33)
[2020-03-24 06:01] LABS: BASOPHILS # (AUTO) 0.04 x10^3/uL (0-0.1); BASOPHILS % (AUTO) 0 % (0-1); EOSINOPHILS # (AUTO) 0.01 x10^3/uL (0-0.4); EOSINOPHILS % (AUTO) 0 % (1-7); LYMPHOCYTES # (AUTO) 1.91 x10^3/uL (1-3.4); LYMPHOCYTES % (AUTO) 19 % (22-44); MD NO; MEAN CORPUSCULAR HEMOGLOBIN 29.4 pg (27.5-34.5); MEAN CORPUSCULAR HGB CONC 32.6 g/dL (33.2-36.2); MEAN CORPUSCULAR VOLUME 90.2 fL (81-97); MEAN PLATELET VOLUME 8.2 fL (7.4-10.4); MONOCYTES # (AUTO) 0.99 x10^3/uL (0.2-0.8); MONOCYTES % (AUTO) 10 % (2-9); NEUTROPHILS % (AUTO) 70 % (42-75); PLATELET COUNT 379 x10^3/uL (130-400); RED BLOOD COUNT 4.16 x10^6/uL (4.38-5.82); RED CELL DISTRIBUTION WIDTH 14.1 % (9.4-14.8)
[2020-03-24 06:03] LABS: ANION GAP 10 mmol/L (5-15); CALCIUM 8.6 mg/dL (8.5-10.1); CHLORIDE 95 mmol/L (98-107); CREATININE 0.53 mg/dL (0.7-1.3)
[2020-03-24 07:23] VITALS: BP 130/61
[2020-03-24] MEDS: OXYcodone IR 5MG TABLET PO PRN ×2 (07:26→17:51)
[2020-03-24] MEDS: PANTOPRAZOLE 40 MG IV IVPush SCH (07:27)
[2020-03-24] MEDS: PANCRELIPASE 24,000 CAPSULE.DR PO SCH ×4 (07:27→17:00)
[2020-03-24] MEDS: HEPARIN 5,000 UNITS/ML, 1ML SQ SCH ×3 (07:28→23:00)
[2020-03-24] MEDS: METOPROLOL TARTRATE 100 MG TAB PO SCH ×2 (08:36→21:09)
[2020-03-24] MEDS: DOCUSATE 100 MG CAPSULE PO SCH (08:36)
[2020-03-24] MEDS: GLIMEPIRIDE 1 MG TABLET PO SCH ×2 (08:37→21:09)
[2020-03-24] MEDS: GABAPENTIN 300 MG CAPSULE PO SCH ×3 (08:37→21:09)
[2020-03-24] MEDS: MULTIVITAMINS/MINERALS TABLET PO SCH (08:37)
[2020-03-24] MEDS: INSULIN LISPRO 100 UNITS/ML, PEN SQ-INSULIN SCH ×4 (08:38→21:10)
[2020-03-24] MEDS: METFORMIN PO SCH ×2 (09:00→21:00)
[2020-03-24] MEDS: ERTUGLIFLOZIN PO SCH ×2 (09:00→21:00)
[2020-03-24] MEDS ORDERED: ACETAMINOPHEN 325 MG TABLET PO PRN (10:30)
[2020-03-24] MEDS: SODIUM CHLORIDE 0.9% 1,000 ML IV SCH ×2 (11:42→19:00)
[2020-03-24 13:30] VITALS: BP 111/74
[2020-03-24 19:19] VITALS: BP 125/70
[2020-03-24 22:12] LABS: MICROSCOPIC NOT IND
[2020-03-25 00:21] VITALS: BP 122/74
[2020-03-25] MEDS: OXYcodone IR 5MG TABLET PO PRN (02:19)
[2020-03-25] MEDS: SODIUM CHLORIDE 0.9% 1,000 ML IV SCH ×3 (02:20→19:27)
[2020-03-25 04:42] LABS: BASOPHILS # (AUTO) 0.02 x10^3/uL (0-0.1); BASOPHILS % (AUTO) 0 % (0-1); EOSINOPHILS # (AUTO) 0.04 x10^3/uL (0-0.4); EOSINOPHILS % (AUTO) 0 % (1-7); LYMPHOCYTES # (AUTO) 2.06 x10^3/uL (1-3.4); LYMPHOCYTES % (AUTO) 22 % (22-44); MD NO; MEAN CORPUSCULAR HEMOGLOBIN 29.4 pg (27.5-34.5); MEAN CORPUSCULAR HGB CONC 32.8 g/dL (33.2-36.2); MEAN CORPUSCULAR VOLUME 89.5 fL (81-97); MEAN PLATELET VOLUME 7.7 fL (7.4-10.4); MONOCYTES # (AUTO) 1.17 x10^3/uL (0.2-0.8); MONOCYTES % (AUTO) 13 % (2-9); NEUTROPHILS # (AUTO) 6.08 x10^3/uL (1.8-6.8); NEUTROPHILS % (AUTO) 65 % (42-75); PLATELET COUNT 354 x10^3/uL (130-400); RED BLOOD COUNT 3.77 x10^6/uL (4.38-5.82); RED CELL DISTRIBUTION WIDTH 13.7 % (9.4-14.8)
[2020-03-25 04:59] LABS: ANION GAP 10 mmol/L (5-15); CALCIUM 8.6 mg/dL (8.5-10.1); CHLORIDE 102 mmol/L (98-107)
[2020-03-25 05:01] LABS: CREATININE 0.34 mg/dL (0.7-1.3)
[2020-03-25] MEDS: morphine SULFATE 10 MG/ML, 1ML IVPush PRN (05:26)
[2020-03-25] MEDS: HEPARIN 5,000 UNITS/ML, 1ML SQ SCH ×3 (07:00→22:02)
[2020-03-25 07:55] VITALS: BP 119/81
[2020-03-25] MEDS: PANCRELIPASE 24,000 CAPSULE.DR PO SCH ×4 (08:00→16:45)
[2020-03-25] MEDS: INSULIN LISPRO 100 UNITS/ML, PEN SQ-INSULIN SCH ×4 (08:39→20:26)
[2020-03-25] MEDS: GABAPENTIN 300 MG CAPSULE PO SCH ×3 (08:40→20:26)
[2020-03-25] MEDS: PANTOPRAZOLE 40 MG IV IVPush SCH (08:40)
[2020-03-25] MEDS: MULTIVITAMINS/MINERALS TABLET PO SCH (08:40)
[2020-03-25] MEDS: METFORMIN PO SCH ×2 (08:41→20:24)
[2020-03-25] MEDS: GLIMEPIRIDE 1 MG TABLET PO SCH ×2 (08:41→20:25)
[2020-03-25] MEDS: ERTUGLIFLOZIN PO SCH ×2 (08:41→20:24)
[2020-03-25] MEDS: METOPROLOL TARTRATE 100 MG TAB PO SCH ×2 (08:42→20:26)
[2020-03-25] MEDS: DOCUSATE 100 MG CAPSULE PO SCH (09:37)
[2020-03-25] MEDS: OXYcodone IR 5MG TABLET PO SCH ×3 (10:42→20:25)
[2020-03-25 14:49] VITALS: BP 139/83
[2020-03-25 18:43] VITALS: BP 109/73
[2020-03-26 01:49] VITALS: BP 162/97
[2020-03-26] MEDS: SODIUM CHLORIDE 0.9% 1,000 ML IV SCH ×2 (04:06→12:16)
[2020-03-26 04:55] LABS: BASOPHILS # (AUTO) 0.03 x10^3/uL (0-0.1); BASOPHILS % (AUTO) 0 % (0-1); EOSINOPHILS % (AUTO) 1 % (1-7); LYMPHOCYTES # (AUTO) 2.77 x10^3/uL (1-3.4); LYMPHOCYTES % (AUTO) 36 % (22-44); MD NO; MEAN CORPUSCULAR HEMOGLOBIN 29.8 pg (27.5-34.5); MEAN CORPUSCULAR HGB CONC 32.6 g/dL (33.2-36.2); MEAN CORPUSCULAR VOLUME 91.2 fL (81-97); MEAN PLATELET VOLUME 7.6 fL (7.4-10.4); MONOCYTES # (AUTO) 0.89 x10^3/uL (0.2-0.8); MONOCYTES % (AUTO) 12 % (2-9); NEUTROPHILS # (AUTO) 4.01 x10^3/uL (1.8-6.8); NEUTROPHILS % (AUTO) 51 % (42-75); PLATELET COUNT 375 x10^3/uL (130-400); RED BLOOD COUNT 3.65 x10^6/uL (4.38-5.82); RED CELL DISTRIBUTION WIDTH 13.8 % (9.4-14.8)
[2020-03-26 05:00] LABS: ANION GAP 6 mmol/L (5-15); CALCIUM 8.9 mg/dL (8.5-10.1); CHLORIDE 106 mmol/L (98-107); CREATININE 0.47 mg/dL (0.7-1.3)
[2020-03-26] MEDS: OXYcodone IR 5MG TABLET PO SCH ×2 (05:55→11:26)
[2020-03-26 07:16] VITALS: BP 123/67
[2020-03-26] MEDS: ERTUGLIFLOZIN PO SCH (09:00)
[2020-03-26] MEDS: METFORMIN PO SCH (09:00)
[2020-03-26] MEDS: DOCUSATE 100 MG CAPSULE PO SCH (09:34)
[2020-03-26] MEDS: MULTIVITAMINS/MINERALS TABLET PO SCH (09:35)
[2020-03-26] MEDS: GLIMEPIRIDE 1 MG TABLET PO SCH (09:35)
[2020-03-26] MEDS: METOPROLOL TARTRATE 100 MG TAB PO SCH (09:35)
[2020-03-26] MEDS: GABAPENTIN 300 MG CAPSULE PO SCH (09:35)
[2020-03-26] MEDS: PANTOPRAZOLE 40 MG IV IVPush SCH (09:36)
[2020-03-26] MEDS: HEPARIN 5,000 UNITS/ML, 1ML SQ SCH ×2 (09:36→15:00)
[2020-03-26] MEDS: INSULIN LISPRO 100 UNITS/ML, PEN SQ-INSULIN SCH ×2 (09:36→12:16)
[2020-03-26] MEDS: PANCRELIPASE 24,000 CAPSULE.DR PO SCH ×2 (10:10→12:16)
[2020-03-26] MEDS: DULOXETINE 30 MG CAPSULE.DR PO SCH ×2 (12:00→12:15)
[2020-03-26] MEDS ORDERED: ACETAMINOPHEN 500 MG TABLET PO SCH (12:00)
[2020-03-26 13:23] VITALS: BP 113/70
[2020-03-26] MEDS ORDERED: OXYC5TAB3 PO (14:42)
[2020-03-26] MEDS ORDERED: GABA300C PO (14:42)
== END 2020-03-26 15:46 | disposition home or self-care (01) | DRG 438 ==
LOC: ED 11:31 → EDIP 11:39 → SUATTDRO 11:44 → 3N 13:36
PROVIDERS: ADMIT Hospitalist; ATTEND Family Medicine
DX: K85.90 Acute pancreatitis without necrosis or infection, unspecified (principal); K83.1 Obstruction of bile duct; E43 Unspecified severe protein-calorie malnutrition; K86.3 Pseudocyst of pancreas; K50.90 Crohn's disease, unspecified, without complications; Q45.3 Other congenital malformations of pancreas and pancreatic duct; E11.65 Type 2 diabetes mellitus with hyperglycemia; F29 Unspecified psychosis not due to a substance or known physiological condition; F41.9 Anxiety disorder, unspecified; F43.21 Adjustment disorder with depressed mood; G89.29 Other chronic pain; I10 Essential (primary) hypertension; K21.9 Gastro-esophageal reflux disease without esophagitis; K76.0 Fatty (change of) liver, not elsewhere classified; L40.9 Psoriasis, unspecified; D72.829 Elevated white blood cell count, unspecified; M19.90 Unspecified osteoarthritis, unspecified site; K86.1 Other chronic pancreatitis; L40.50 Arthropathic psoriasis, unspecified; Z83.3 Family history of diabetes mellitus; Z83.511 Family history of glaucoma; Z79.899 Other long term (current) drug therapy; Z79.891 Long term (current) use of opiate analgesic; Z68.27 Body mass index [BMI] 27.0-27.9, adult
CPT/HCPCS: 36415; 71045; 74181; 80048; 80053; 80061; 81003; 82962; 83036; 83690; 83735; 84100; 84439; 84443; 85025; 85651; 86140; 93005; G0378; J1170; J1644; J2405; 92522-GN; C9113; J1815; J2270; J3475; J3480; J7030

== ENCOUNTER 2020-04-19 11:27 | Inpatient (IN) | payer MEDICAID ==
[~2020-04-19] VITALS: Ht 172.7 cm; Wt 83.3 kg
[~2020-04-19 11:27] MED LIST changes: +ADAL40PE2 SQ; +GABA300C PO; -OXYC-432 PO; +OXYC1TAB18 PO; +OXYC5TAB3 PO
[2020-04-19] MEDS ORDERED: HYDR-3246 PO (12:00)
--- NOTE | 2020-04-19 12:08 | NUR ---
THIS IS A 49 YO M W/ C/O RUQ, RLQ, LUQ, LLQ ABD PAIN X2 DAYS. PT REPORTS HX OF PANCREATITIS, AND THAT HE IS SUPPOSED TO HAVE PSEUDOCYSTS REMOVED FROM PANCREAS NEXT WEEK. PT DENIES N/V/D. PT RESTING ON Ritani W/ CALL LIGHT IN REACH, CONNECTED TO MONITORING. PT TACHYCARDIC, OTHER VS WDL. AWAITING ED EVAL.
[2020-04-19] MEDS ORDERED: ACETAMINOPHEN 500 MG TABLET PO ONE (12:30)
[2020-04-19] MEDS ORDERED: SODIUM CHLORIDE 0.9% 1,000ML IVBOLUS ONE (12:30)
[2020-04-19] MEDS ORDERED: ONDANSETRON 2MG/ML, 2ML IVPush ONE (12:30)
[2020-04-19] MEDS ORDERED: SODIUM CHLORIDE FLUSH 10ML SYR IVF ONE (12:30)
--- NOTE | 2020-04-19 12:31 | NUR ---
PIV STARTED, LABS DRAWN AND 1ST SET OF BLOOD CULTURES. SENT TO LAB.
[2020-04-19] MEDS ORDERED: ONDANSETRON 2MG/ML, 2ML ONE (12:32)
[2020-04-19] MEDS ORDERED: ACETAMINOPHEN 500 MG TABLET ONE (12:32)
[2020-04-19] MEDS ORDERED: MORPHINE SULFATE 4 MG/ML, 1ML ONE ×3 (12:32→15:31)
[2020-04-19] MEDS: MORPHINE SULFATE 4 MG/ML, 1ML IVPush PRN ×2 (12:35→13:41)
[2020-04-19 12:40] LABS: BASOPHILS # (AUTO) 0.05 x10^3/uL (0-0.1); BASOPHILS % (AUTO) 0 % (0-1); EOSINOPHILS # (AUTO) 0.01 x10^3/uL (0-0.4); EOSINOPHILS % (AUTO) 0 % (1-7); LYMPHOCYTES # (AUTO) 2.14 x10^3/uL (1-3.4); LYMPHOCYTES % (AUTO) 15 % (22-44); MD NO; MEAN CORPUSCULAR HEMOGLOBIN 28.5 pg (27.5-34.5); MEAN CORPUSCULAR HGB CONC 32.6 g/dL (33.2-36.2); MEAN CORPUSCULAR VOLUME 87.4 fL (81-97); MONOCYTES # (AUTO) 0.99 x10^3/uL (0.2-0.8); MONOCYTES % (AUTO) 7 % (2-9); NEUTROPHILS # (AUTO) 10.72 x10^3/uL (1.8-6.8); NEUTROPHILS % (AUTO) 77 % (42-75); PLATELET COUNT 792 x10^3/uL (130-400); RED BLOOD COUNT 3.94 x10^6/uL (4.38-5.82); RED CELL DISTRIBUTION WIDTH 15.3 % (9.4-14.8)
[2020-04-19 12:52] LABS: ALANINE AMINOTRANSFERASE 49 U/L (12-78); ANION GAP 13 mmol/L (5-15); CALCIUM 10.3 mg/dL (8.5-10.1); CHLORIDE 94 mmol/L (98-107); CREATININE 0.54 mg/dL (0.7-1.3)
[2020-04-19 13:07] LABS: ALKALINE PHOSPHATASE 1178 U/L (45-117); BILIRUBIN,TOTAL 0.6 mg/dL (0.2-1.0); TOTAL PROTEIN 9.7 g/dL (6.4-8.2)
--- NOTE | 2020-04-19 13:09 | NUR ---
PT TO CT.
[2020-04-19] MEDS ORDERED: OMNIPAQUE 350 MG/ML, 100ML BOTTLE ONE (13:22)
--- NOTE | 2020-04-19 13:43 | NUR ---
PT UNABLE TO PROVIDE URINE SAMPLE.
--- NOTE | 2020-04-19 13:43 | NUR ---
PT REPORTS PAIN HAS RETURNED 01/24. PT MEDICATED PER EMAR. PT RESTING ON GURNEY W/ CALL LIGHT IN REACH AND SIDE RAILS UPX2. NADN. AWAITING RECHECK.
[2020-04-19] MEDS ORDERED: METRONIDAZOLE PMX 500MG/100ML 100 ML IV ONE (14:00)
[2020-04-19] MEDS ORDERED: PIPERACILLIN/TAZO/PMX 3.375GM 50 ML IV ONE (14:00)
[2020-04-19] MEDS ORDERED: PIPERACILLIN/TAZO/PMX 3.375GM 50 ML ONE (14:28)
[2020-04-19] MEDS ORDERED: METRONIDAZOLE PMX 500MG/100ML 100 ML ONE (14:29)
--- NOTE | 2020-04-19 14:51 | NUR ---
PT REQUESTING PAIN MEDS. UPDATED. AWAITING ORDERS.
[2020-04-19] MEDS ORDERED: HYDROmorphone 1 MG/ML, 1ML INJ IM ONE (15:00)
[2020-04-19] MEDS: PIPERACILLIN/TAZO/PMX 3.375GM 50 ML IV SCH ×2 (15:00→22:42)
[2020-04-19] MEDS ORDERED: HYDROmorphone 1 MG/ML, 1ML INJ IV PRN (15:00)
[2020-04-19 15:09] LABS: MICROSCOPIC AUTO
[2020-04-19] MEDS ORDERED: MORPHINE SULFATE 4 MG/ML, 1ML IVPush ONE ×2 (15:30→16:00)
--- NOTE | 2020-04-19 15:36 | NUR ---
NO NEW ORDERS FOR PAIN MEDS RECEIVED. UPDATED ON PTS PAIN STATUS. NEW ORDERS RECEIVED, PT MEDICATED PER EMAR. PT RESTING ON GURNEY W/ CALL LIGHT IN REACH, VSS, NADN.
--- NOTE | 2020-04-19 15:36 | NUR ---
PT MEDICATED W/ 4MG MORPHINE IV PUSH PER ORDER PLACED BY .
--- NOTE | 2020-04-19 16:17 | NUR ---
ORDER FOR MEDS NOT POPULATING IN EMAR. TELEPHONE CALL TO PHARM AND IT.
--- NOTE | 2020-04-19 16:23 | NUR ---
REPORT GIVEN TO
[2020-04-19 19:19] VITALS: BP 143/80
[2020-04-19] MEDS: FAMOTIDINE 20 MG/2 ML IVPush SCH (19:37)
[2020-04-20] MEDS: HYDROmorphone 1 MG/ML, 1ML INJ IV PRN ×5 (00:18→16:13)
[2020-04-20 01:44] VITALS: BP 152/91
[2020-04-20 05:15] LABS: BASOPHILS # (AUTO) 0.04 x10^3/uL (0-0.1); BASOPHILS % (AUTO) 0 % (0-1); EOSINOPHILS # (AUTO) 0.13 x10^3/uL (0-0.4); EOSINOPHILS % (AUTO) 1 % (1-7); LYMPHOCYTES # (AUTO) 1.91 x10^3/uL (1-3.4); LYMPHOCYTES % (AUTO) 15 % (22-44); MD NO; MEAN CORPUSCULAR HEMOGLOBIN 28.4 pg (27.5-34.5); MEAN CORPUSCULAR HGB CONC 32.5 g/dL (33.2-36.2); MEAN CORPUSCULAR VOLUME 87.5 fL (81-97); MEAN PLATELET VOLUME 6.8 fL (7.4-10.4); MONOCYTES # (AUTO) 0.95 x10^3/uL (0.2-0.8); MONOCYTES % (AUTO) 8 % (2-9); NEUTROPHILS # (AUTO) 9.59 x10^3/uL (1.8-6.8); NEUTROPHILS % (AUTO) 76 % (42-75); PLATELET COUNT 766 x10^3/uL (130-400); RED CELL DISTRIBUTION WIDTH 15.3 % (9.4-14.8)
[2020-04-20 05:29] LABS: ALBUMIN 1.9 g/dL (3.4-5.0); ANION GAP 8 mmol/L (5-15); CALCIUM 9.1 mg/dL (8.5-10.1); CHLORIDE 96 mmol/L (98-107)
[2020-04-20 05:48] LABS: ALANINE AMINOTRANSFERASE 45 U/L (12-78); ALKALINE PHOSPHATASE 1105 U/L (45-117); BILIRUBIN,TOTAL 0.5 mg/dL (0.2-1.0); CREATININE 0.53 mg/dL (0.7-1.3); TOTAL PROTEIN 9.1 g/dL (6.4-8.2)
[2020-04-20] MEDS: PIPERACILLIN/TAZO/PMX 3.375GM 50 ML IV SCH ×3 (06:38→23:52)
[2020-04-20 08:10] VITALS: BP 144/87
[2020-04-20] MEDS: FAMOTIDINE 20 MG/2 ML IVPush SCH ×2 (08:25→20:57)
[2020-04-20] MEDS ORDERED: PHARMACOKINETIC MONITORING MC PRN (09:00)
[2020-04-20] MEDS ORDERED: VANCOMYCIN PER PHARMACY MC PRN (09:00)
[2020-04-20] MEDS ORDERED: VANCOMYCIN 1,900 MG in SODIUM CHLORIDE 0.9% 250 ML IV ONE (09:30)
[2020-04-20 12:24] VITALS: BP 154/98
[2020-04-20] MEDS ORDERED: ADALIMUMAB 40 MG/0.8 ML SQ SCH (14:33)
[2020-04-20] MEDS ORDERED: LIDOCAINE 1%, 20ML ONE (15:56)
[2020-04-20] MEDS ORDERED: MIDAZOLAM 1 MG/ML, 5ML ONE ×2 (16:11→17:24)
[2020-04-20] MEDS ORDERED: FENTANYL PF 100 MCG/2ML ONE ×2 (16:12→17:24)
[2020-04-20] MEDS ORDERED: FLUMAZENIL 0.1 MG/1 ML, 5ML ONE (16:12)
[2020-04-20] MEDS ORDERED: NALOXONE 1 MG/ML, 2ML ONE (16:12)
[2020-04-20] MEDS ORDERED: morphine SULFATE 10 MG/ML, 1ML ONE (18:01)
[2020-04-20] MEDS: SODIUM CHLORIDE 0.9% 1,000 ML IV SCH (18:16)
[2020-04-20] MEDS ORDERED: morphine SULFATE 10 MG/ML, 1ML IVPush ONE (18:30)
[2020-04-20 19:36] VITALS: BP_SYST 127; BP_SYST 141; BP_DIAS 70; BP_DIAS 87
[2020-04-20] MEDS: INSULIN GLARGINE 100 UNITS/ML, PEN SQ-INSULIN SCH (21:36)
[2020-04-20] MEDS: VANCOMYCIN 1,400 MG in SODIUM CHLORIDE 0.9% 250 ML IV SCH (22:06)
[2020-04-21 01:05] VITALS: BP 173/97
[2020-04-21] MEDS: ACETAMINOPHEN 325 MG TABLET PO PRN ×2 (01:16→07:33)
[2020-04-21 02:03] VITALS: BP 145/82
[2020-04-21] MEDS: SODIUM CHLORIDE 0.9% 1,000 ML IV SCH ×3 (03:25→19:59)
[2020-04-21 03:37] VITALS: BP 121/75
[2020-04-21 04:07] LABS: HCT (SEDRATE) 28.5 % (39.2-51.8)
[2020-04-21 07:31] VITALS: BP 158/90
[2020-04-21] MEDS: PIPERACILLIN/TAZO/PMX 3.375GM 50 ML IV SCH ×2 (07:35→16:41)
[2020-04-21] MEDS: FAMOTIDINE 20 MG/2 ML IVPush SCH ×2 (09:43→21:44)
[2020-04-21] MEDS: VANCOMYCIN 1,400 MG in SODIUM CHLORIDE 0.9% 250 ML IV SCH ×2 (09:45→21:46)
[2020-04-21 10:37] LABS: BASOPHILS # (AUTO) 0.07 x10^3/uL (0-0.1); BASOPHILS % (AUTO) 1 % (0-1); EOSINOPHILS # (AUTO) 0.06 x10^3/uL (0-0.4); EOSINOPHILS % (AUTO) 1 % (1-7); LYMPHOCYTES # (AUTO) 1.54 x10^3/uL (1-3.4); LYMPHOCYTES % (AUTO) 13 % (22-44); MD NO; MEAN CORPUSCULAR HEMOGLOBIN 28.2 pg (27.5-34.5); MEAN CORPUSCULAR HGB CONC 32.4 g/dL (33.2-36.2); MEAN CORPUSCULAR VOLUME 87.1 fL (81-97); MEAN PLATELET VOLUME 6.1 fL (7.4-10.4); MONOCYTES % (AUTO) 6 % (2-9); NEUTROPHILS # (AUTO) 9.44 x10^3/uL (1.8-6.8); NEUTROPHILS % (AUTO) 80 % (42-75); PLATELET COUNT 608 x10^3/uL (130-400); RED BLOOD COUNT 3.38 x10^6/uL (4.38-5.82); RED CELL DISTRIBUTION WIDTH 15.1 % (9.4-14.8)
[2020-04-21 10:39] LABS: HCT (SEDRATE) 29.5 % (39.2-51.8)
[2020-04-21 10:44] LABS: ALANINE AMINOTRANSFERASE 40 U/L (12-78); ALBUMIN 1.6 g/dL (3.4-5.0); ANION GAP 8 mmol/L (5-15); CALCIUM 8.5 mg/dL (8.5-10.1); CHLORIDE 100 mmol/L (98-107); CREATININE 0.68 mg/dL (0.7-1.3)
[2020-04-21 10:51] LABS: ALKALINE PHOSPHATASE 978 U/L (45-117); BILIRUBIN,TOTAL 0.7 mg/dL (0.2-1.0)
[2020-04-21 10:59] LABS: C-REACTIVE PROTEIN, QUANT > 19.00 mg/dL (0.02-0.49)
[2020-04-21] MEDS: INSULIN LISPRO 100 UNITS/ML, PEN SQ-INSULIN SCH ×3 (11:00→21:57)
[2020-04-21 14:09] VITALS: BP 152/76
[2020-04-21 20:00] VITALS: BP 127/76
[2020-04-21] MEDS: INSULIN GLARGINE 100 UNITS/ML, PEN SQ-INSULIN SCH (21:56)
[2020-04-22] MEDS: PIPERACILLIN/TAZO/PMX 3.375GM 50 ML IV SCH ×3 (00:26→16:27)
[2020-04-22] MEDS: SODIUM CHLORIDE 0.9% 1,000 ML IV SCH ×2 (02:56→11:28)
[2020-04-22 03:42] VITALS: BP 135/77
[2020-04-22 07:34] VITALS: BP 114/70
[2020-04-22] MEDS: INSULIN LISPRO 100 UNITS/ML, PEN SQ-INSULIN SCH ×4 (08:09→20:20)
[2020-04-22] MEDS: FAMOTIDINE 20 MG/2 ML IVPush SCH ×2 (08:09→20:20)
[2020-04-22 13:09] VITALS: BP 128/73
[2020-04-22] MEDS ORDERED: BISACODYL 10 MG SUPP PR PRN (15:30)
[2020-04-22 19:22] VITALS: BP 112/74
[2020-04-22] MEDS: DOCUSATE 100 MG CAPSULE PO SCH (20:20)
[2020-04-22] MEDS: MAGNESIUM HYDROXIDE 8%, 30ML UDC PO SCH (20:20)
[2020-04-22] MEDS: INSULIN GLARGINE 100 UNITS/ML, PEN SQ-INSULIN SCH (20:21)
[2020-04-23] MEDS: SODIUM CHLORIDE 0.9% 1,000 ML IV SCH ×5 (00:04→20:21)
[2020-04-23] MEDS: PIPERACILLIN/TAZO/PMX 3.375GM 50 ML IV SCH ×3 (00:04→16:29)
[2020-04-23 01:55] VITALS: BP 139/85
[2020-04-23] MEDS: ACETAMINOPHEN 325 MG TABLET PO PRN (04:00)
[2020-04-23 05:32] LABS: HCT (SEDRATE) 25.8 % (39.2-51.8)
[2020-04-23 05:33] LABS: BASOPHILS # (AUTO) 0.06 x10^3/uL (0-0.1); BASOPHILS % (AUTO) 1 % (0-1); EOSINOPHILS # (AUTO) 0.39 x10^3/uL (0-0.4); EOSINOPHILS % (AUTO) 3 % (1-7); LYMPHOCYTES % (AUTO) 17 % (22-44); MD NO; MEAN CORPUSCULAR HEMOGLOBIN 28.1 pg (27.5-34.5); MEAN CORPUSCULAR HGB CONC 32.2 g/dL (33.2-36.2); MEAN CORPUSCULAR VOLUME 87.3 fL (81-97); MEAN PLATELET VOLUME 6.4 fL (7.4-10.4); MONOCYTES # (AUTO) 0.74 x10^3/uL (0.2-0.8); MONOCYTES % (AUTO) 6 % (2-9); NEUTROPHILS % (AUTO) 73 % (42-75); PLATELET COUNT 600 x10^3/uL (130-400); RED BLOOD COUNT 2.91 x10^6/uL (4.38-5.82); RED CELL DISTRIBUTION WIDTH 15.3 % (9.4-14.8)
[2020-04-23 05:44] LABS: ALBUMIN 1.4 g/dL (3.4-5.0); ANION GAP 7 mmol/L (5-15); CALCIUM 8.5 mg/dL (8.5-10.1); CHLORIDE 108 mmol/L (98-107)
[2020-04-23 05:54] LABS: ALANINE AMINOTRANSFERASE 32 U/L (12-78); ALKALINE PHOSPHATASE 817 U/L (45-117); BILIRUBIN,TOTAL 0.4 mg/dL (0.2-1.0); CREATININE 1.21 mg/dL (0.7-1.3); TOTAL PROTEIN 6.9 g/dL (6.4-8.2)
[2020-04-23 06:47] LABS: SEDIMENTATION RATE > 120 mm/hr (0-10)
[2020-04-23] MEDS: INSULIN LISPRO 100 UNITS/ML, PEN SQ-INSULIN SCH ×4 (07:00→20:29)
[2020-04-23 07:09] VITALS: BP 159/104
[2020-04-23] MEDS: DOCUSATE 100 MG CAPSULE PO SCH ×2 (09:26→20:21)
[2020-04-23] MEDS: MAGNESIUM HYDROXIDE 8%, 30ML UDC PO SCH ×2 (09:26→20:22)
[2020-04-23] MEDS: FAMOTIDINE 20 MG/2 ML IVPush SCH (09:27)
[2020-04-23 13:18] VITALS: BP 144/85
[2020-04-23 20:20] VITALS: BP 145/95
[2020-04-23] MEDS: FAMOTIDINE 20 MG TABLET PO SCH (20:22)
[2020-04-23] MEDS: INSULIN GLARGINE 100 UNITS/ML, PEN SQ-INSULIN SCH (20:31)
[2020-04-24] MEDS: PIPERACILLIN/TAZO/PMX 3.375GM 50 ML IV SCH ×3 (00:45→16:14)
[2020-04-24 01:59] VITALS: BP 151/97
[2020-04-24] MEDS: SODIUM CHLORIDE 0.9% 1,000 ML IV SCH ×3 (04:26→21:13)
[2020-04-24] MEDS: INSULIN LISPRO 100 UNITS/ML, PEN SQ-INSULIN SCH ×4 (07:26→21:13)
[2020-04-24 08:05] VITALS: BP 170/102
[2020-04-24] MEDS: DOCUSATE 100 MG CAPSULE PO SCH ×2 (08:15→21:11)
[2020-04-24] MEDS: MAGNESIUM HYDROXIDE 8%, 30ML UDC PO SCH ×2 (08:15→21:11)
[2020-04-24] MEDS: FAMOTIDINE 20 MG TABLET PO SCH ×2 (08:15→21:11)
[2020-04-24 08:45] VITALS: BP 146/88
[2020-04-24 16:06] VITALS: BP 156/94
[2020-04-24] MEDS: INSULIN GLARGINE 100 UNITS/ML, PEN SQ-INSULIN SCH (21:13)
[2020-04-24 21:33] VITALS: BP 164/102
[2020-04-24 22:00] VITALS: BP 158/97
[2020-04-25] MEDS: PIPERACILLIN/TAZO/PMX 3.375GM 50 ML IV SCH (00:57)
[2020-04-25 02:09] VITALS: BP 173/110
[2020-04-25] MEDS: hydrALAzine 20 MG/ML, 1ML IV PRN (02:38)
[2020-04-25] MEDS: SODIUM CHLORIDE 0.9% 1,000 ML IV SCH ×2 (04:23→13:00)
[2020-04-25 04:48] LABS: HCT (SEDRATE) 27.6 % (39.2-51.8)
[2020-04-25 04:50] LABS: ALBUMIN 1.5 g/dL (3.4-5.0); ANION GAP 6 mmol/L (5-15); BASOPHILS # (AUTO) 0.29 x10^3/uL (0-0.1); BASOPHILS % (AUTO) 3 % (0-1); CALCIUM 8.7 mg/dL (8.5-10.1); CHLORIDE 110 mmol/L (98-107); CREATININE 1.07 mg/dL (0.7-1.3); EOSINOPHILS # (AUTO) 0.17 x10^3/uL (0-0.4); EOSINOPHILS % (AUTO) 2 % (1-7); LYMPHOCYTES # (AUTO) 2.31 x10^3/uL (1-3.4); LYMPHOCYTES % (AUTO) 23 % (22-44); MD NO; MEAN CORPUSCULAR VOLUME 87.3 fL (81-97); MEAN PLATELET VOLUME 6.3 fL (7.4-10.4); MONOCYTES # (AUTO) 0.58 x10^3/uL (0.2-0.8); MONOCYTES % (AUTO) 6 % (2-9); NEUTROPHILS # (AUTO) 6.86 x10^3/uL (1.8-6.8); NEUTROPHILS % (AUTO) 67 % (42-75); PLATELET COUNT 757 x10^3/uL (130-400); RED BLOOD COUNT 3.15 x10^6/uL (4.38-5.82); RED CELL DISTRIBUTION WIDTH 15.3 % (9.4-14.8)
[2020-04-25 05:19] VITALS: BP 170/98
[2020-04-25 05:47] LABS: SEDIMENTATION RATE > 120 mm/hr (0-10)
[2020-04-25] MEDS: INSULIN LISPRO 100 UNITS/ML, PEN SQ-INSULIN SCH ×4 (07:00→22:45)
[2020-04-25 07:22] VITALS: BP 147/109
[2020-04-25] MEDS ORDERED: MAGNESIUM SULFATE PMX 2GM/50ML 50 ML IV ONE (08:00)
[2020-04-25] MEDS: CEFTRIAXONE PMX 2GM/50ML 50 ML IV SCH (08:26)
[2020-04-25] MEDS: DOCUSATE 100 MG CAPSULE PO SCH ×2 (08:27→22:29)
[2020-04-25] MEDS: MAGNESIUM HYDROXIDE 8%, 30ML UDC PO SCH ×2 (08:27→22:29)
[2020-04-25] MEDS: FAMOTIDINE 20 MG TABLET PO SCH ×2 (08:30→22:29)
[2020-04-25] MEDS: FUROSEMIDE 40 MG/4 ML IV SCH ×2 (11:53→22:32)
[2020-04-25 14:16] VITALS: BP 164/111
[2020-04-25 19:41] VITALS: BP 167/91
[2020-04-25] MEDS: INSULIN GLARGINE 100 UNITS/ML, PEN SQ-INSULIN SCH (22:44)
[2020-04-26 02:12] VITALS: BP 173/98
[2020-04-26] MEDS: hydrALAzine 20 MG/ML, 1ML IV PRN ×3 (02:38→12:49)
[2020-04-26] MEDS: FUROSEMIDE 40 MG/4 ML IV SCH ×2 (06:19→17:26)
[2020-04-26 06:42] LABS: BASOPHILS # (AUTO) 0.15 x10^3/uL (0-0.1); BASOPHILS % (AUTO) 2 % (0-1); EOSINOPHILS # (AUTO) 0.15 x10^3/uL (0-0.4); EOSINOPHILS % (AUTO) 2 % (1-7); LYMPHOCYTES # (AUTO) 2.68 x10^3/uL (1-3.4); LYMPHOCYTES % (AUTO) 27 % (22-44); MD NO; MEAN CORPUSCULAR HEMOGLOBIN 27.8 pg (27.5-34.5); MEAN CORPUSCULAR HGB CONC 32.2 g/dL (33.2-36.2); MEAN CORPUSCULAR VOLUME 86.4 fL (81-97); MEAN PLATELET VOLUME 6.1 fL (7.4-10.4); MONOCYTES # (AUTO) 0.64 x10^3/uL (0.2-0.8); MONOCYTES % (AUTO) 7 % (2-9); NEUTROPHILS # (AUTO) 6.23 x10^3/uL (1.8-6.8); NEUTROPHILS % (AUTO) 63 % (42-75); PLATELET COUNT 807 x10^3/uL (130-400); RED BLOOD COUNT 3.39 x10^6/uL (4.38-5.82); RED CELL DISTRIBUTION WIDTH 15.4 % (9.4-14.8)
[2020-04-26 06:53] LABS: ALBUMIN 1.6 g/dL (3.4-5.0); ANION GAP 7 mmol/L (5-15); CHLORIDE 108 mmol/L (98-107)
[2020-04-26] MEDS: INSULIN LISPRO 100 UNITS/ML, PEN SQ-INSULIN SCH ×4 (07:00→21:46)
[2020-04-26 07:21] VITALS: BP 167/100
[2020-04-26] MEDS: MAGNESIUM HYDROXIDE 8%, 30ML UDC PO SCH ×2 (09:00→21:38)
[2020-04-26] MEDS: DOCUSATE 100 MG CAPSULE PO SCH ×2 (09:00→21:35)
[2020-04-26 09:02] VITALS: BP 174/96
[2020-04-26] MEDS: FAMOTIDINE 20 MG TABLET PO SCH ×2 (09:08→21:35)
[2020-04-26] MEDS: CEFTRIAXONE PMX 2GM/50ML 50 ML IV SCH (09:08)
[2020-04-26 10:16] VITALS: BP 157/88
[2020-04-26 12:50] VITALS: BP 178/108
[2020-04-26] MEDS: METOPROLOL SUCCINATE 50 MG TAB.ER.24H PO SCH (15:41)
[2020-04-26] MEDS: MAGNESIUM OXIDE 400 MG TABLET PO SCH ×2 (15:41→21:35)
[2020-04-26 19:54] VITALS: BP 164/96
[2020-04-26] MEDS: INSULIN GLARGINE 100 UNITS/ML, PEN SQ-INSULIN SCH (21:46)
[2020-04-27] VITALS (7 sets, daily range): BP systolic 135–170; BP diastolic 76–121
[2020-04-27] MEDS: METOPROLOL SUCCINATE 50 MG TAB.ER.24H PO SCH ×2 (05:42→21:57)
[2020-04-27 05:51] LABS: BASOPHILS # (AUTO) 0.19 x10^3/uL (0-0.1); BASOPHILS % (AUTO) 2 % (0-1); EOSINOPHILS # (AUTO) 0.13 x10^3/uL (0-0.4); EOSINOPHILS % (AUTO) 1 % (1-7); LYMPHOCYTES # (AUTO) 2.77 x10^3/uL (1-3.4); LYMPHOCYTES % (AUTO) 31 % (22-44); MD NO; MEAN CORPUSCULAR HEMOGLOBIN 27.4 pg (27.5-34.5); MEAN CORPUSCULAR HGB CONC 31.8 g/dL (33.2-36.2); MEAN CORPUSCULAR VOLUME 86.2 fL (81-97); MEAN PLATELET VOLUME 5.9 fL (7.4-10.4); MONOCYTES # (AUTO) 0.55 x10^3/uL (0.2-0.8); MONOCYTES % (AUTO) 6 % (2-9); NEUTROPHILS # (AUTO) 5.31 x10^3/uL (1.8-6.8); NEUTROPHILS % (AUTO) 59 % (42-75); PLATELET COUNT 653 x10^3/uL (130-400); RED BLOOD COUNT 3.06 x10^6/uL (4.38-5.82); RED CELL DISTRIBUTION WIDTH 15.6 % (9.4-14.8)
[2020-04-27 05:58] LABS: CHLORIDE 104 mmol/L (98-107)
[2020-04-27] MEDS ORDERED: METOPROLOL SUCCINATE 50 MG TAB.ER.24H PO SCH (06:00)
[2020-04-27 06:02] LABS: ALBUMIN 1.5 g/dL (3.4-5.0); ANION GAP 8 mmol/L (5-15); CALCIUM 8.9 mg/dL (8.5-10.1); CREATININE 1.01 mg/dL (0.7-1.3)
[2020-04-27] MEDS ORDERED: POTASSIUM CHLORIDE 20 MEQ TAB.ER.PRT PO ONE (08:00)
[2020-04-27] MEDS ORDERED: MAGNESIUM SULFATE/D5W 100 ML IV ONE (08:00)
[2020-04-27] MEDS: CEFTRIAXONE PMX 2GM/50ML 50 ML IV SCH (08:09)
[2020-04-27] MEDS: FUROSEMIDE 40 MG/4 ML IV SCH ×2 (08:10→17:17)
[2020-04-27] MEDS: INSULIN LISPRO 100 UNITS/ML, PEN SQ-INSULIN SCH ×4 (08:10→21:59)
[2020-04-27] MEDS: FAMOTIDINE 20 MG TABLET PO SCH ×2 (08:10→21:57)
[2020-04-27] MEDS: DOCUSATE 100 MG CAPSULE PO SCH ×2 (08:10→21:58)
[2020-04-27] MEDS: MAGNESIUM HYDROXIDE 8%, 30ML UDC PO SCH ×2 (08:11→21:00)
[2020-04-27] MEDS: MAGNESIUM OXIDE 400 MG TABLET PO SCH ×2 (08:15→21:57)
[2020-04-27] MEDS ORDERED: AMLODIPINE 5 MG TABLET PO SCH (09:00)
[2020-04-27] MEDS ORDERED: MORPHINE SULFATE 4 MG/ML, 1ML IVPush PRN (11:00)
[2020-04-27] MEDS ORDERED: OMNIPAQUE 350 MG/ML, 100ML BOTTLE ONE (11:05)
[2020-04-27] MEDS: GABAPENTIN 300 MG CAPSULE PO SCH ×3 (11:48→21:58)
[2020-04-27] MEDS ORDERED: GABAPENTIN 300 MG CAPSULE PO SCH (12:00)
[2020-04-27] MEDS: hydrALAzine 20 MG/ML, 1ML IV PRN (15:18)
[2020-04-27] MEDS: METFORMIN PO SCH (21:00)
[2020-04-27] MEDS ORDERED: LISINOPRIL 10 MG TABLET PO SCH (21:00)
[2020-04-27] MEDS: ERTUGLIFLOZIN PO SCH (21:00)
[2020-04-27] MEDS: GLIMEPIRIDE 1 MG TABLET PO SCH (21:57)
[2020-04-27] MEDS: INSULIN GLARGINE 100 UNITS/ML, PEN SQ-INSULIN SCH (21:59)
[2020-04-28 01:11] VITALS: BP 125/76
[2020-04-28] MEDS: GABAPENTIN 300 MG CAPSULE PO SCH ×3 (04:49→22:49)
[2020-04-28 06:07] LABS: CHLORIDE 101 mmol/L (98-107)
[2020-04-28 06:41] LABS: ANION GAP 9 mmol/L (5-15); CALCIUM 8.8 mg/dL (8.5-10.1); CREATININE 1.12 mg/dL (0.7-1.3)
[2020-04-28] MEDS: INSULIN LISPRO 100 UNITS/ML, PEN SQ-INSULIN SCH ×4 (07:00→22:51)
[2020-04-28] MEDS: FUROSEMIDE 40 MG/4 ML IV SCH (07:43)
[2020-04-28 08:41] VITALS: BP 157/97
[2020-04-28] MEDS: METFORMIN PO SCH ×2 (09:00→22:55)
[2020-04-28] MEDS: ERTUGLIFLOZIN PO SCH ×2 (09:00→22:55)
[2020-04-28] MEDS: MAGNESIUM HYDROXIDE 8%, 30ML UDC PO SCH ×3 (09:00→22:52)
[2020-04-28] MEDS: CEFTRIAXONE PMX 2GM/50ML 50 ML IV SCH (09:23)
[2020-04-28] MEDS: GLIMEPIRIDE 1 MG TABLET PO SCH ×2 (09:24→22:46)
[2020-04-28] MEDS: MAGNESIUM OXIDE 400 MG TABLET PO SCH ×2 (09:24→22:48)
[2020-04-28] MEDS: DOCUSATE 100 MG CAPSULE PO SCH ×2 (09:24→22:48)
[2020-04-28] MEDS: FAMOTIDINE 20 MG TABLET PO SCH ×2 (09:24→22:47)
[2020-04-28] MEDS: METOPROLOL SUCCINATE 50 MG TAB.ER.24H PO SCH ×2 (09:25→22:49)
[2020-04-28] MEDS ORDERED: MORPHINE SULFATE 4 MG/ML, 1ML IVPush PRN (11:00)
[2020-04-28] MEDS: metFORMIN 500 MG TABLET PO SCH ×2 (13:38→16:26)
[2020-04-28 13:41] VITALS: BP 152/80
[2020-04-28] MEDS: MORPHINE SULFATE 4 MG/ML, 1ML IVPush PRN ×2 (16:58→22:45)
[2020-04-28 20:00] VITALS: BP 148/85
[2020-04-28] MEDS ORDERED: FAMOTIDINE 40 MG TABLET ONE (22:32)
[2020-04-28] MEDS: INSULIN GLARGINE 100 UNITS/ML, PEN SQ-INSULIN SCH (22:50)
[2020-04-29 02:00] VITALS: BP 148/85
[2020-04-29] MEDS: MORPHINE SULFATE 4 MG/ML, 1ML IVPush PRN ×2 (04:13→08:04)
[2020-04-29 06:55] VITALS: BP 162/88
[2020-04-29] MEDS ORDERED: FAMOTIDINE 40 MG TABLET ONE ×3 (07:51→20:05)
[2020-04-29 08:03] LABS: ANION GAP 6 mmol/L (5-15); CALCIUM 8.6 mg/dL (8.5-10.1); CHLORIDE 100 mmol/L (98-107); CHOLESTEROL, TOTAL 132 mg/dL (140-239); CREATININE 1.21 mg/dL (0.7-1.3); TRIGLYCERIDES 173 mg/dL (50-200); VLDL CHOLESTEROL 35 mg/dL (0-25)
[2020-04-29] MEDS: metFORMIN 500 MG TABLET PO SCH ×2 (08:03→16:37)
[2020-04-29] MEDS: INSULIN GLARGINE 100 UNITS/ML, PEN SQ-INSULIN SCH ×2 (08:03→20:14)
[2020-04-29] MEDS: INSULIN LISPRO 100 UNITS/ML, PEN SQ-INSULIN SCH ×4 (08:03→20:14)
[2020-04-29 08:05] LABS: CHOL/HDL RATIO 4.4; HDL CHOL % 23 % (26-37); HDL CHOLESTEROL (DIRECT) 30 mg/dL (40-60); LDL CHOLESTEROL,CALCULATED 67 mg/dL (54-169); LDL/HDL RATIO 2.2 (0.5-3.0)
[2020-04-29] MEDS: MAGNESIUM OXIDE 400 MG TABLET PO SCH ×2 (08:05→20:12)
[2020-04-29] MEDS: DOCUSATE 100 MG CAPSULE PO SCH ×2 (08:05→20:11)
[2020-04-29] MEDS: METOPROLOL SUCCINATE 50 MG TAB.ER.24H PO SCH ×2 (08:05→20:12)
[2020-04-29] MEDS: FUROSEMIDE 40 MG/4 ML IV SCH (08:05)
[2020-04-29] MEDS: GLIMEPIRIDE 1 MG TABLET PO SCH ×2 (08:06→20:12)
[2020-04-29] MEDS: METFORMIN PO SCH ×2 (08:06→20:10)
[2020-04-29] MEDS: FAMOTIDINE 20 MG TABLET PO SCH ×2 (08:06→20:11)
[2020-04-29] MEDS: MAGNESIUM HYDROXIDE 8%, 30ML UDC PO SCH ×2 (08:06→20:16)
[2020-04-29] MEDS: GABAPENTIN 300 MG CAPSULE PO SCH ×3 (08:06→20:12)
[2020-04-29] MEDS: ERTUGLIFLOZIN PO SCH ×2 (08:06→20:10)
[2020-04-29] MEDS: CEFTRIAXONE PMX 2GM/50ML 50 ML IV SCH (09:28)
[2020-04-29] MEDS: OXYcodone IR 5MG TABLET PO PRN ×3 (12:26→22:45)
[2020-04-29] MEDS: OxyconTIN ER 20 MG TAB.ER PO SCH ×2 (12:26→23:40)
[2020-04-29 14:24] VITALS: BP 145/90
[2020-04-29 19:45] VITALS: BP 151/84
[2020-04-30 03:19] VITALS: BP 134/82
[2020-04-30 03:58] LABS: BASOPHILS # (AUTO) 0.26 x10^3/uL (0-0.1); BASOPHILS % (AUTO) 3 % (0-1); EOSINOPHILS # (AUTO) 0.33 x10^3/uL (0-0.4); EOSINOPHILS % (AUTO) 3 % (1-7); HCT (SEDRATE) 27.6 % (39.2-51.8); LYMPHOCYTES # (AUTO) 3.64 x10^3/uL (1-3.4); LYMPHOCYTES % (AUTO) 36 % (22-44); MD NO; MEAN CORPUSCULAR HEMOGLOBIN 27.4 pg (27.5-34.5); MEAN CORPUSCULAR HGB CONC 31.4 g/dL (33.2-36.2); MEAN CORPUSCULAR VOLUME 87.3 fL (81-97); MEAN PLATELET VOLUME 6.3 fL (7.4-10.4); MONOCYTES # (AUTO) 0.66 x10^3/uL (0.2-0.8); MONOCYTES % (AUTO) 6 % (2-9); NEUTROPHILS # (AUTO) 5.34 x10^3/uL (1.8-6.8); NEUTROPHILS % (AUTO) 52 % (42-75); PLATELET COUNT 666 x10^3/uL (130-400); RED BLOOD COUNT 3.19 x10^6/uL (4.38-5.82); RED CELL DISTRIBUTION WIDTH 16.4 % (9.4-14.8)
[2020-04-30 04:09] LABS: ALANINE AMINOTRANSFERASE 13 U/L (12-78); ALBUMIN 1.9 g/dL (3.4-5.0); ANION GAP 4 mmol/L (5-15); CALCIUM 8.5 mg/dL (8.5-10.1); CHLORIDE 101 mmol/L (98-107); CREATININE 1.41 mg/dL (0.7-1.3)
[2020-04-30 04:16] LABS: ALKALINE PHOSPHATASE 465 U/L (45-117); BILIRUBIN,TOTAL 0.3 mg/dL (0.2-1.0); TOTAL PROTEIN 7.3 g/dL (6.4-8.2)
[2020-04-30 06:20] VITALS: BP 132/81
[2020-04-30] MEDS: OXYcodone IR 5MG TABLET PO PRN ×3 (06:30→16:00)
[2020-04-30] MEDS ORDERED: FAMOTIDINE 40 MG TABLET ONE (08:18)
[2020-04-30] MEDS: INSULIN LISPRO 100 UNITS/ML, PEN SQ-INSULIN SCH ×2 (08:23→11:25)
[2020-04-30] MEDS: INSULIN GLARGINE 100 UNITS/ML, PEN SQ-INSULIN SCH (08:23)
[2020-04-30] MEDS: metFORMIN 500 MG TABLET PO SCH ×2 (08:24→16:00)
[2020-04-30] MEDS: GABAPENTIN 300 MG CAPSULE PO SCH ×2 (08:24→15:59)
[2020-04-30] MEDS: METOPROLOL SUCCINATE 50 MG TAB.ER.24H PO SCH (08:24)
[2020-04-30] MEDS: GLIMEPIRIDE 1 MG TABLET PO SCH (08:24)
[2020-04-30] MEDS: CEFTRIAXONE PMX 2GM/50ML 50 ML IV SCH (08:25)
[2020-04-30] MEDS: DOCUSATE 100 MG CAPSULE PO SCH (08:25)
[2020-04-30] MEDS: FUROSEMIDE 40 MG/4 ML IV SCH (08:25)
[2020-04-30] MEDS: MAGNESIUM HYDROXIDE 8%, 30ML UDC PO SCH (08:25)
[2020-04-30] MEDS: ERTUGLIFLOZIN PO SCH (08:25)
[2020-04-30] MEDS: METFORMIN PO SCH (08:25)
[2020-04-30] MEDS: FAMOTIDINE 20 MG TABLET PO SCH (08:26)
[2020-04-30] MEDS ORDERED: DULOXETINE 30 MG CAPSULE.DR PO SCH (09:00)
[2020-04-30] MEDS ORDERED: CEFT2VIA53 IV (11:10)
[2020-04-30] MEDS ORDERED: DULO30CA2 PO (11:10)
[2020-04-30] MEDS ORDERED: OXYC5TAB3 PO (11:10)
[2020-04-30] MEDS ORDERED: ACET325T26 PO (11:10)
[2020-04-30] MEDS ORDERED: GABA300C PO (11:10)
[2020-04-30] MEDS: OxyconTIN ER 20 MG TAB.ER PO SCH (11:24)
[2020-04-30 13:11] VITALS: BP 164/91
== END 2020-04-30 16:20 | disposition home or self-care (01) | DRG 871 ==
LOC: ED 12:32 → EDIP 14:21 → 4NE 16:13 → 3N 04-27 15:00 → DCLOUNGE 04-30 16:10
PROVIDERS: ADMIT Internal Medicine; ATTEND Hospitalist
PROC: 0F9030Z Drainage of Liver with Drainage Device, Percutaneous Approach (ICD-10-PCS; 2020-04-20)
PROC: 02HV33Z Insertion of Infusion Device into Superior Vena Cava, Percutaneous Approach (ICD-10-PCS; principal; 2020-04-24)
PROC: B548ZZA Ultrasonography of Superior Vena Cava, Guidance (ICD-10-PCS; 2020-04-24)
DX: A40.3 Sepsis due to Streptococcus pneumoniae (principal); K75.0 Abscess of liver; K83.1 Obstruction of bile duct; K85.90 Acute pancreatitis without necrosis or infection, unspecified; K86.1 Other chronic pancreatitis; E11.42 Type 2 diabetes mellitus with diabetic polyneuropathy; E11.65 Type 2 diabetes mellitus with hyperglycemia; G89.29 Other chronic pain; I10 Essential (primary) hypertension; K21.9 Gastro-esophageal reflux disease without esophagitis; K76.0 Fatty (change of) liver, not elsewhere classified; L40.50 Arthropathic psoriasis, unspecified; Z79.899 Other long term (current) drug therapy; Z83.3 Family history of diabetes mellitus
CPT/HCPCS: 36415; 84145; 96361; 96374; 96375; 96376; 99291; J3490; 36573; 49405; 71045; 74160; 74177; 77012; 80048; 80053; 80061; 80069; 81001; 82962; 83036; 83605; 83690; 83735; 84100; 84443; 85025; 85651; 86140; 87040; 87070; 87075; 87077; 87181; 87205; 93306; 99156; 99157; G0378; J0696; J1170; J1940; J2250; J2270; J2405; J2543; J3010; J3370; Q9967; C1729; C1751; J0360; J1815; J2310; J3475; J7030; J7050

== ENCOUNTER → 2020-05-09 | Outpatient (CLI) | payer MEDICAID ==
[~2020-05-09] MED LIST changes: +ACET325T26 PO; +CEFT2VIA53 IV; +DULO30CA2 PO; +HYDR-3246 PO; +OMNIPAQUE 350 MG/ML, 100ML BOTTLE ONE
== END | disposition home or self-care (01) ==
LOC: RAD 15:37
PROVIDERS: ATTEND Internal Medicine Infectious Disease
DX: K76.89 Other specified diseases of liver (principal); K40.20 Bilateral inguinal hernia, without obstruction or gangrene, not specified as recurrent; K82.0 Obstruction of gallbladder
CPT/HCPCS: 74177; Q9967

== ENCOUNTER → 2020-05-30 | Outpatient (CLI) | payer MEDICAID | END | disposition home or self-care (01) | LOC: RAD 10:11 | PROVIDERS: ATTEND Internal Medicine Infectious Disease | DX: K86.89 Other specified diseases of pancreas (principal); R59.9 Enlarged lymph nodes, unspecified; K75.0 Abscess of liver | CPT/HCPCS: 74170; Q9967 ==

== ENCOUNTER 2020-10-31 20:46 | Inpatient (IN) | payer MEDICAID ==
[~2020-10-31] VITALS: Ht 165.1 cm; Wt 78.6 kg
[~2020-10-31 20:46] MED LIST changes: -HYDR-3246 PO; +HYDR-3248 PO; +METF500T17 PO; -OMNIPAQUE 350 MG/ML, 100ML BOTTLE ONE; -OXYC-302 PO; +OXYC1TAB14 PO; -OXYC5TAB3 PO; +OXYC5TAB98 PO; +POLY17PO5 PO; +TAMS-11 PO
--- NOTE | 2020-10-31 21:09 | NUR ---
INITIAL PT CONTACT. PT PRESENTS TO THE ED C/O "SUGARS ALL OVER THE PLACE, AND SUPER VARRIED BP READINGS. I HAVE REALLY BAD ABDOMINAL PAIN, IT'S MY PANCREAS, I CAN FEEL IT BULDGING. I ALSO FEEL LIKE I AM GOING TO PASS OUT A LOT OF THE TIME". PT HAS HX OF PANCREATITIS. PT NOTED TO BE PALE, DIAPHORETIC AND ANXIOUS WHEN IN ED ROOM. PT PLACED ON CONTINUOUS PULSE OX AND CARDIAC MONITORING, ERP AT BEDSIDE. PIV STARTED PER ERP ORDER. WILL MEDICATE PER EMAR. CALL LIGHT AND BELONGINGS WITHIN REACH. SPOUSE AT BEDSIDE.
[2020-10-31] MEDS ORDERED: LOSA50TA14 PO (21:21)
[2020-10-31] MEDS ORDERED: ALFU10TA PO (21:21)
[2020-10-31] MEDS ORDERED: ONDANSETRON 2MG/ML, 2ML ONE (21:23)
[2020-10-31] MEDS ORDERED: PROMETHAZINE 25 MG/ML, 1ML ONE (21:23)
[2020-10-31] MEDS ORDERED: MORPHINE SULFATE 4 MG/ML, 1ML ONE ×2 (21:23→21:53)
[2020-10-31] MEDS ORDERED: ONDANSETRON 2MG/ML, 2ML IVPush ONE (21:30)
[2020-10-31] MEDS ORDERED: SODIUM CHLORIDE 0.9% 1,000ML IVBOLUS ONE (21:30)
[2020-10-31] MEDS ORDERED: PROMETHAZINE 25 MG/ML, 1ML IM ONE (21:30)
[2020-10-31] MEDS: MORPHINE SULFATE 4 MG/ML, 1ML IVPush PRN ×2 (21:31→21:55)
[2020-10-31 21:33] LABS: BASOPHILS % (AUTO) 1 % (0-1); EOSINOPHILS % (AUTO) 1 % (1-7); LYMPHOCYTES % (AUTO) 48 % (22-44); MEAN CORPUSCULAR HEMOGLOBIN 34.7 pg (27.5-34.5); MEAN CORPUSCULAR HGB CONC 35.1 g/dL (33.2-36.2); MEAN PLATELET VOLUME 7.3 fL (7.4-10.4); MONOCYTES % (AUTO) 9 % (2-9); NEUTROPHILS % (AUTO) 41 % (42-75); PLATELET COUNT 428 x10^3/uL (130-400); RED BLOOD COUNT 3.36 x10^6/uL (4.38-5.82); RED CELL DISTRIBUTION WIDTH 15.4 % (9.4-14.8)
[2020-10-31 21:34] LABS: MD SCAN
[2020-10-31 21:46] LABS: ALANINE AMINOTRANSFERASE 129 U/L (12-78); ANION GAP 7 mmol/L (5-15); CALCIUM 9.7 mg/dL (8.5-10.1); CHLORIDE 98 mmol/L (98-107); CREATININE 1.56 mg/dL (0.7-1.3)
[2020-10-31 21:48] LABS: ALKALINE PHOSPHATASE 178 U/L (45-117); BILIRUBIN,TOTAL 0.4 mg/dL (0.2-1.0); TOTAL PROTEIN 8.9 g/dL (6.4-8.2)
[2020-10-31 21:49] LABS: ACETONE, SERUM Trace (Negative)
--- NOTE | 2020-10-31 22:00 | NUR ---
PT REPORTS MILD IMPROVEMENT OF ABD PAIN, REQUESTS ADDITIONAL DOSE OF MEDICATION. PT MEDICATED PER EMAR. NO OTHER NEEDS AT THIS TIME. CALL LIGHT AND PERSONAL BELONGINGS WITHIN REACH. SPOUSE AT BEDSIDE
[2020-10-31] MEDS ORDERED: OMNIPAQUE 350 MG/ML, 100ML BOTTLE ONE (22:37)
--- NOTE | 2020-10-31 23:38 | NUR ---
HOSPITALIST AT BEDSIDE
--- NOTE | 2020-11-01 00:03 | NUR ---
PT SITTING UPRIGHT ON GURNEY WATCHING TV, NADN, VSS. PT REPORTS INCREASING PAIN, "PROBABLY WILL NEED MORE PAIN MEDS SOON". ERP AWARE, WILL MEDICATE PER EMAR WHEN PT REQUESTS. PT PROVIDED WARM BLANKET. NO ADDITIONAL NEEDS AT THIS TIME. CALL LIGHT AND BELONGINGS WITHIN REACH
[2020-11-01] MEDS ORDERED: HYDROmorphone 1 MG/ML, 1ML INJ IV ONE (00:30)
[2020-11-01] MEDS ORDERED: HYDROmorphone 1 MG/ML, 1ML INJ ONE (00:41)
--- NOTE | 2020-11-01 00:58 | NUR ---
Pt to be admitted to TELE2, room 494-1. Report called to MELODY.
[2020-11-01] MEDS ORDERED: MAGNESIUM SULFATE PMX 4GM/100M 100 ML IVPB ONE (01:30)
[2020-11-01 01:58] VITALS: BP 117/79
[2020-11-01] MEDS ORDERED: POLYETHYLENE GLYCOL 17 GM PACKET PO PRN (02:00)
[2020-11-01] MEDS ORDERED: PROMETHAZINE 25 MG/ML, 1ML IM PRN (02:00)
[2020-11-01] MEDS ORDERED: ONDANSETRON 2MG/ML, 2ML IVPush PRN (02:00)
[2020-11-01] MEDS ORDERED: BISACODYL 10 MG SUPP PR PRN (02:00)
[2020-11-01] MEDS ORDERED: hydrALAzine 20 MG/ML, 1ML IVPush PRN (02:00)
[2020-11-01] MEDS ORDERED: ONDANSETRON ODT 4 MG PO PRN (02:00)
[2020-11-01] MEDS ORDERED: TRAM50TA2 PO (02:08)
[2020-11-01] MEDS ORDERED: METF500T17 PO (02:08)
[2020-11-01] MEDS: GABAPENTIN 300 MG CAPSULE PO SCH ×4 (02:19→20:10)
[2020-11-01] MEDS: SODIUM CHLORIDE 0.9% 1,000 ML IV SCH ×2 (02:27→08:40)
[2020-11-01] MEDS: INSULIN GLARGINE 100 UNITS/ML, PEN SQ-INSULIN SCH ×2 (03:07→21:00)
[2020-11-01] MEDS: INSULIN LISPRO 100 UNITS/ML, PEN SQ-INSULIN SCH ×5 (03:08→21:00)
[2020-11-01] MEDS: OMEPRAZOLE 20 MG CAPSULE.DR PO SCH (06:26)
[2020-11-01] MEDS: morphine SULFATE 10 MG/ML, 1ML IVPush PRN ×3 (06:31→20:12)
[2020-11-01 06:34] VITALS: BP 112/74
[2020-11-01] MEDS: ENOXAPARIN 40 MG/0.4 ML SQ SCH (08:22)
[2020-11-01] MEDS: SENNA/DOCUSATE TABLET PO SCH (08:23)
[2020-11-01] MEDS: GLIMEPIRIDE 1 MG TABLET PO SCH ×2 (08:23→20:08)
[2020-11-01] MEDS: MULTIVITAMIN 1 TABLET PO SCH (08:23)
[2020-11-01] MEDS: DULOXETINE 30 MG CAPSULE.DR PO SCH (08:24)
[2020-11-01] MEDS: METOPROLOL TARTRATE 100 MG TAB PO SCH ×2 (08:24→20:10)
[2020-11-01] MEDS ORDERED: METOPROLOL TARTRATE 100 MG TAB PO SCH ×2 (09:00)
[2020-11-01] MEDS: ALFUZOSIN HCL 10 MG PO SCH (09:00)
[2020-11-01] MEDS: OXYcodone IR 5MG TABLET PO PRN ×2 (09:51→17:17)
[2020-11-01] MEDS: PANCRELIPASE 24,000 CAPSULE.DR PO SCH ×3 (09:53→17:16)
[2020-11-01 13:02] VITALS: BP 100/64
[2020-11-01 20:18] VITALS: BP 126/75
[2020-11-01] MEDS ORDERED: DIPHENHYDRAMINE 50 MG CAPSULE PO SCH (21:00)
[2020-11-02 02:00] VITALS: BP 118/71
[2020-11-02] MEDS ORDERED: SODIUM CHLORIDE 0.9% 1,000 ML IV SCH (02:00)
[2020-11-02] MEDS: morphine SULFATE 10 MG/ML, 1ML IVPush PRN (03:14)
[2020-11-02] MEDS: OMEPRAZOLE 20 MG CAPSULE.DR PO SCH (05:54)
[2020-11-02] MEDS: OXYcodone IR 5MG TABLET PO PRN ×2 (05:55→11:04)
[2020-11-02 05:59] LABS: CHLORIDE 111 mmol/L (98-107)
[2020-11-02 06:06] LABS: BASOPHILS % (AUTO) 1 % (0-1); EOSINOPHILS % (AUTO) 3 % (1-7); LYMPHOCYTES % (AUTO) 52 % (22-44); MEAN CORPUSCULAR HEMOGLOBIN 34.6 pg (27.5-34.5); MEAN CORPUSCULAR HGB CONC 34.1 g/dL (33.2-36.2); MEAN PLATELET VOLUME 7.8 fL (7.4-10.4); MONOCYTES % (AUTO) 9 % (2-9); NEUTROPHILS % (AUTO) 36 % (42-75); PLATELET COUNT 391 x10^3/uL (130-400); RED BLOOD COUNT 2.93 x10^6/uL (4.38-5.82)
[2020-11-02 06:19] LABS: MD NO
[2020-11-02 06:21] LABS: ALANINE AMINOTRANSFERASE 83 U/L (12-78); ALKALINE PHOSPHATASE 116 U/L (45-117); ANION GAP 6 mmol/L (5-15); BILIRUBIN,TOTAL 0.3 mg/dL (0.2-1.0); CALCIUM 9.4 mg/dL (8.5-10.1); CHOL/HDL RATIO 5.9; CHOLESTEROL, TOTAL 183 mg/dL (140-239); CREATININE 0.85 mg/dL (0.7-1.3); HDL CHOL % 17 % (26-37); HDL CHOLESTEROL (DIRECT) 31 mg/dL (40-60); LDL CHOLESTEROL,CALCULATED 82 mg/dL (54-169); LDL/HDL RATIO 2.6 (0.5-3.0); TOTAL PROTEIN 6.8 g/dL (6.4-8.2); TRIGLYCERIDES 352 mg/dL (50-200); VLDL CHOLESTEROL 70 mg/dL (0-25)
[2020-11-02 06:34] VITALS: BP 117/73
[2020-11-02] MEDS: INSULIN LISPRO 100 UNITS/ML, PEN SQ-INSULIN SCH ×2 (07:51→11:12)
[2020-11-02] MEDS: ENOXAPARIN 40 MG/0.4 ML SQ SCH (09:00)
[2020-11-02] MEDS: ALFUZOSIN HCL 10 MG PO SCH (09:00)
[2020-11-02] MEDS: GLIMEPIRIDE 1 MG TABLET PO SCH (09:15)
[2020-11-02] MEDS: DULOXETINE 30 MG CAPSULE.DR PO SCH (09:16)
[2020-11-02] MEDS: PANCRELIPASE 24,000 CAPSULE.DR PO SCH ×2 (09:16→12:25)
[2020-11-02] MEDS: METOPROLOL TARTRATE 100 MG TAB PO SCH (09:16)
[2020-11-02] MEDS: GABAPENTIN 300 MG CAPSULE PO SCH (09:16)
[2020-11-02] MEDS: SENNA/DOCUSATE TABLET PO SCH (09:17)
[2020-11-02] MEDS: MULTIVITAMIN 1 TABLET PO SCH (09:17)
[2020-11-02] MEDS ORDERED: HYDR-3248 PO (10:46)
[2020-11-02] MEDS ORDERED: INSU100I13 SQ-INSULIN ×2 (10:46)
[2020-11-02 14:01] VITALS: BP 123/77
[2020-11-02] MEDS ORDERED: INSU100I34 SQ-INSULIN (15:57)
== END 2020-11-02 15:52 | disposition home or self-care (01) | DRG 439 ==
LOC: ED 11-01 00:11 → EDIP 11-01 00:49 → 4EST 11-01 01:11 → DCLOUNGE 11-02 15:36
PROVIDERS: ADMIT Internal Medicine; ATTEND Hospitalist
DX: K85.30 Drug induced acute pancreatitis without necrosis or infection (principal); E87.1 Hypo-osmolality and hyponatremia; D63.8 Anemia in other chronic diseases classified elsewhere; K86.1 Other chronic pancreatitis; E11.42 Type 2 diabetes mellitus with diabetic polyneuropathy; E11.65 Type 2 diabetes mellitus with hyperglycemia; E86.0 Dehydration; L40.50 Arthropathic psoriasis, unspecified; N40.0 Benign prostatic hyperplasia without lower urinary tract symptoms; I95.89 Other hypotension; R55 Syncope and collapse; R74.8 Abnormal levels of other serum enzymes; D47.3 Essential (hemorrhagic) thrombocythemia; R00.0 Tachycardia, unspecified; Z79.84 Long term (current) use of oral hypoglycemic drugs; Z79.899 Other long term (current) drug therapy
CPT/HCPCS: 36415; 71045; 74177; 80053; 80061; 82010; 82803; 82962; 83036; 83690; 83735; 84443; 85025; 93005; 96361; 96372; 96374; 96375; G0378; J1170; J1650; J2405; J2550; Q9967; J1815; J2270; J3475; J7030

== ENCOUNTER 2020-11-19 13:22 | Inpatient (IN) | payer MEDICAID ==
[~2020-11-19] VITALS: Ht 172.7 cm; Wt 90.2 kg
[~2020-11-19 13:22] MED LIST changes: +ALFU10TA PO; +INSU100I34 SQ-INSULIN; +LOSA50TA14 PO
--- NOTE | 2020-11-19 13:46 | NUR ---
Pt arrived with complaints of L sided AB pain that radiates to his back. Pt claims pain is due to flare in pancreatitis, pain on LUQ worsens when touched, pt rates pain 9/10 and is relieved with positioning. Sitting up relieves discomfort. Pt independely changed into gown and ambulatory with steady gait to room, VSS.
[2020-11-19] MEDS ORDERED: SODIUM CHLORIDE 0.9% 1,000 ML IV ONE ×2 (14:30→17:30)
[2020-11-19] MEDS ORDERED: SODIUM CHLORIDE 0.9% 1,000ML IVBOLUS ONE (14:30)
[2020-11-19] MEDS ORDERED: HYDROmorphone 1 MG/ML, 1ML INJ IV ONE ×2 (14:30→17:30)
[2020-11-19] MEDS ORDERED: ONDANSETRON 2MG/ML, 2ML IVPush ONE (14:30)
[2020-11-19] MEDS ORDERED: SODIUM CHLORIDE FLUSH 10ML SYR IVF ONE (14:30)
[2020-11-19] MEDS ORDERED: HYDROmorphone 1 MG/ML, 1ML INJ ONE ×2 (14:36→17:06)
[2020-11-19] MEDS ORDERED: ONDANSETRON 2MG/ML, 2ML ONE (14:36)
[2020-11-19 15:17] LABS: ALANINE AMINOTRANSFERASE 266 U/L (12-78); ALBUMIN 3.5 g/dL (3.4-5.0); ANION GAP 20 mmol/L (5-15); CHLORIDE 89 mmol/L (98-107); CREATININE 0.91 mg/dL (0.7-1.3)
[2020-11-19 15:19] LABS: ALKALINE PHOSPHATASE 943 U/L (45-117); BILIRUBIN,TOTAL 2.3 mg/dL (0.2-1.0); TOTAL PROTEIN 9.2 g/dL (6.4-8.2)
[2020-11-19 15:27] LABS: BASOPHILS % (AUTO) 1 % (0-1); EOSINOPHILS % (AUTO) 0 % (1-7); LYMPHOCYTES % (AUTO) 21 % (22-44); MEAN CORPUSCULAR HEMOGLOBIN 33.2 pg (27.5-34.5); MEAN CORPUSCULAR HGB CONC 34.2 g/dL (33.2-36.2); MEAN PLATELET VOLUME 7.5 fL (7.4-10.4); MONOCYTES % (AUTO) 7 % (2-9); NEUTROPHILS % (AUTO) 71 % (42-75); PLATELET COUNT 398 x10^3/uL (130-400); RED BLOOD COUNT 3.86 x10^6/uL (4.38-5.82)
[2020-11-19 15:29] LABS: MD NO
[2020-11-19 16:03] LABS: ACETONE, SERUM Large (80mg/dL) (Negative)
[2020-11-19 16:54] LABS: MICROSCOPIC INDICATED
[2020-11-19] MEDS ORDERED: TRAM50TA2 PO (17:02)
[2020-11-19] MEDS ORDERED: SODIUM CHLORIDE FLUSH 10ML SYR IVF PRN (17:30)
--- NOTE | 2020-11-19 17:44 | NUR ---
Report called to Tania CONTE, no answer
--- NOTE | 2020-11-19 17:47 | NUR ---
Report given to Tania CONTE
[2020-11-19] MEDS ORDERED: DEXTROSE 50%, 50ML SYRINGE IVPush PRN (18:00)
[2020-11-19] MEDS ORDERED: DEXTROSE 4 GM TAB.CHEW PO PRN (18:00)
[2020-11-19] MEDS ORDERED: BISACODYL 10 MG SUPP PR PRN (18:00)
[2020-11-19] MEDS ORDERED: hydrALAzine 20 MG/ML, 1ML IVPush PRN (18:00)
[2020-11-19] MEDS ORDERED: ONDANSETRON ODT 4 MG PO PRN (18:00)
[2020-11-19] MEDS ORDERED: GLUCAGON 1 MG IM PRN (18:00)
[2020-11-19] MEDS ORDERED: ONDANSETRON 2MG/ML, 2ML IVPush PRN (18:00)
[2020-11-19 18:08] VITALS: BP 153/87
[2020-11-19] MEDS: SODIUM CHLORIDE 0.9% 1,000 ML IV SCH (19:23)
[2020-11-19 19:45] VITALS: BP 159/86
[2020-11-19] MEDS: HYDROmorphone 2 MG/ML, 1ML IVPush PRN (20:47)
[2020-11-19] MEDS: INSULIN LISPRO 100 UNITS/ML, PEN SQ-INSULIN SCH (22:55)
[2020-11-19] MEDS: SODIUM CHLORIDE FLUSH 10ML SYR IVF SCH (22:55)
[2020-11-20] MEDS: HYDROmorphone 2 MG/ML, 1ML IVPush PRN ×10 (00:14→23:35)
[2020-11-20] MEDS: SODIUM CHLORIDE 0.9% 1,000 ML IV SCH ×4 (00:15→23:35)
[2020-11-20 00:39] VITALS: BP 169/89
[2020-11-20] MEDS: CALCIUM CARBONATE 500 MG TAB.CHEW PO PRN (00:58)
[2020-11-20 05:28] LABS: BASOPHILS % (AUTO) 1 % (0-1); EOSINOPHILS % (AUTO) 1 % (1-7); LYMPHOCYTES % (AUTO) 25 % (22-44); MEAN CORPUSCULAR HEMOGLOBIN 33.2 pg (27.5-34.5); MEAN CORPUSCULAR HGB CONC 34.1 g/dL (33.2-36.2); MEAN PLATELET VOLUME 7.4 fL (7.4-10.4); MONOCYTES % (AUTO) 8 % (2-9); NEUTROPHILS % (AUTO) 65 % (42-75); PLATELET COUNT 294 x10^3/uL (130-400); RED BLOOD COUNT 3.32 x10^6/uL (4.38-5.82); RED CELL DISTRIBUTION WIDTH 14.8 % (9.4-14.8)
[2020-11-20 05:41] LABS: ALANINE AMINOTRANSFERASE 220 U/L (12-78); ALBUMIN 2.7 g/dL (3.4-5.0); ANION GAP 12 mmol/L (5-15); CALCIUM 9.1 mg/dL (8.5-10.1); CHLORIDE 101 mmol/L (98-107); CREATININE 0.66 mg/dL (0.7-1.3)
[2020-11-20 05:45] LABS: ALKALINE PHOSPHATASE 749 U/L (45-117); BILIRUBIN,TOTAL 3.3 mg/dL (0.2-1.0); CHOL/HDL RATIO 9.1; CHOLESTEROL, TOTAL 246 mg/dL (140-239); HDL CHOL % 11 % (26-37); HDL CHOLESTEROL (DIRECT) 27 mg/dL (40-60); LDL CHOLESTEROL,CALCULATED 163 mg/dL (54-169); TOTAL PROTEIN 7.3 g/dL (6.4-8.2); TRIGLYCERIDES 280 mg/dL (50-200); VLDL CHOLESTEROL 56 mg/dL (0-25)
[2020-11-20 06:07] LABS: MD SCAN
[2020-11-20 08:17] VITALS: BP 171/105
[2020-11-20] MEDS: SODIUM CHLORIDE FLUSH 10ML SYR IVF SCH ×2 (08:23→20:11)
[2020-11-20] MEDS: INSULIN LISPRO 100 UNITS/ML, PEN SQ-INSULIN SCH ×4 (08:29→20:10)
[2020-11-20] MEDS ORDERED: MAGNESIUM SULFATE PMX 2GM/50ML 50 ML IV ONE (08:30)
[2020-11-20 11:59] VITALS: BP 157/100
[2020-11-20 12:57] VITALS: BP 170/97
[2020-11-20 17:23] VITALS: BP 175/99
[2020-11-20] MEDS: LABETALOL 5MG/ML, 20ML IVPush PRN (17:25)
[2020-11-20 18:05] VITALS: BP 141/90
[2020-11-21] VITALS (8 sets, daily range): BP systolic 144–176; BP diastolic 89–107
[2020-11-21 05:37] LABS: BASOPHILS % (AUTO) 1 % (0-1); EOSINOPHILS % (AUTO) 1 % (1-7); LYMPHOCYTES % (AUTO) 33 % (22-44); MEAN CORPUSCULAR HGB CONC 33.6 g/dL (33.2-36.2); MEAN PLATELET VOLUME 6.7 fL (7.4-10.4); MONOCYTES % (AUTO) 11 % (2-9); NEUTROPHILS % (AUTO) 55 % (42-75); PLATELET COUNT 272 x10^3/uL (130-400); RED BLOOD COUNT 3.13 x10^6/uL (4.38-5.82); RED CELL DISTRIBUTION WIDTH 14.6 % (9.4-14.8)
[2020-11-21 05:40] LABS: MD NO
[2020-11-21 05:45] LABS: ALANINE AMINOTRANSFERASE 226 U/L (12-78); ALBUMIN 2.6 g/dL (3.4-5.0); ANION GAP 9 mmol/L (5-15); CALCIUM 8.7 mg/dL (8.5-10.1); CHLORIDE 103 mmol/L (98-107); CREATININE 0.69 mg/dL (0.7-1.3)
[2020-11-21 05:47] LABS: ALKALINE PHOSPHATASE 722 U/L (45-117); TOTAL PROTEIN 6.9 g/dL (6.4-8.2)
[2020-11-21] MEDS: SODIUM CHLORIDE 0.9% 1,000 ML IV SCH ×2 (05:49→18:08)
[2020-11-21] MEDS: SODIUM CHLORIDE FLUSH 10ML SYR IVF SCH ×2 (07:24→20:09)
[2020-11-21] MEDS: INSULIN LISPRO 100 UNITS/ML, PEN SQ-INSULIN SCH ×4 (07:24→21:24)
[2020-11-21] MEDS: LABETALOL 5MG/ML, 20ML IVPush PRN (07:29)
[2020-11-21] MEDS ORDERED: LORazepam 2 MG/ML, 1ML IVPush ONE (07:30)
[2020-11-21] MEDS ORDERED: REGADENOSON 0.4 MG/5 ML SYRINGE ONE (08:49)
[2020-11-21] MEDS ORDERED: SINCALIDE (KINEVAC) 5 MCG ONE (08:50)
[2020-11-21] MEDS: HYDROmorphone 2 MG/ML, 1ML IVPush PRN ×5 (10:40→21:23)
[2020-11-21] MEDS: CEFTRIAXONE PMX 1GM/50ML 50 ML IV SCH (11:15)
[2020-11-21] MEDS: OXYcodone IR 5MG TABLET PO PRN ×3 (11:48→22:22)
[2020-11-21] MEDS: METRONIDAZOLE PMX 500MG/100ML 100 ML IV SCH ×2 (11:52→20:09)
[2020-11-21] MEDS ORDERED: INSULIN LISPRO 100 UNIT/ML, 3ML VIAL SQ-INSULIN ONE (21:30)
[2020-11-22 01:09] VITALS: BP 153/99
[2020-11-22] MEDS: HYDROmorphone 2 MG/ML, 1ML IVPush PRN ×3 (01:24→20:08)
[2020-11-22] MEDS: SODIUM CHLORIDE 0.9% 1,000 ML IV SCH ×4 (02:09→20:14)
[2020-11-22] MEDS: OXYcodone IR 5MG TABLET PO PRN ×5 (02:38→22:48)
[2020-11-22] MEDS: METRONIDAZOLE PMX 500MG/100ML 100 ML IV SCH ×4 (04:07→20:30)
[2020-11-22 05:24] LABS: BASOPHILS % (AUTO) 1 % (0-1); EOSINOPHILS % (AUTO) 3 % (1-7); LYMPHOCYTES % (AUTO) 47 % (22-44); MEAN CORPUSCULAR HEMOGLOBIN 33.5 pg (27.5-34.5); MEAN CORPUSCULAR HGB CONC 34.4 g/dL (33.2-36.2); MEAN PLATELET VOLUME 6.5 fL (7.4-10.4); MONOCYTES % (AUTO) 10 % (2-9); NEUTROPHILS % (AUTO) 40 % (42-75); PLATELET COUNT 238 x10^3/uL (130-400); RED BLOOD COUNT 2.93 x10^6/uL (4.38-5.82); RED CELL DISTRIBUTION WIDTH 14.5 % (9.4-14.8)
[2020-11-22 05:41] LABS: MD NO
[2020-11-22 05:45] LABS: ALANINE AMINOTRANSFERASE 163 U/L (12-78); ALBUMIN 2.7 g/dL (3.4-5.0); ANION GAP 9 mmol/L (5-15); CALCIUM 8.5 mg/dL (8.5-10.1); CHLORIDE 105 mmol/L (98-107); CREATININE 0.34 mg/dL (0.7-1.3)
[2020-11-22 05:47] LABS: ALKALINE PHOSPHATASE 579 U/L (45-117); BILIRUBIN,TOTAL 0.7 mg/dL (0.2-1.0); TOTAL PROTEIN 6.6 g/dL (6.4-8.2)
[2020-11-22 07:11] VITALS: BP 195/98
[2020-11-22 07:23] VITALS: BP 166/95
[2020-11-22] MEDS: INSULIN LISPRO 100 UNITS/ML, PEN SQ-INSULIN SCH ×4 (08:00→20:29)
[2020-11-22] MEDS: SODIUM CHLORIDE FLUSH 10ML SYR IVF SCH ×2 (08:01→20:08)
[2020-11-22] MEDS ORDERED: POTASSIUM CHLORIDE 40 MEQ in SODIUM CHLORIDE 0.9% 500 ML IV ONE (09:30)
[2020-11-22] MEDS: CEFTRIAXONE PMX 1GM/50ML 50 ML IV SCH (10:03)
[2020-11-22 12:27] VITALS: BP 178/93
[2020-11-22] MEDS ORDERED: MAGNESIUM SULFATE PMX 4GM/100M 100 ML IVPB ONE (15:30)
[2020-11-22 18:16] VITALS: BP 161/99
[2020-11-22] MEDS: METOPROLOL TARTRATE 50 MG TAB PO SCH (18:20)
[2020-11-22] MEDS ORDERED: INSULIN GLARGINE 100 UNITS/ML, PEN SQ-INSULIN SCH (21:00)
[2020-11-23] MEDS: HYDROmorphone 2 MG/ML, 1ML IVPush PRN ×3 (00:30→09:41)
[2020-11-23 02:38] VITALS: BP 175/98
[2020-11-23] MEDS: OXYcodone IR 5MG TABLET PO PRN ×3 (02:57→13:07)
[2020-11-23] MEDS: LABETALOL 5MG/ML, 20ML IVPush PRN (02:59)
[2020-11-23] MEDS: METOPROLOL TARTRATE 50 MG TAB PO SCH (04:41)
[2020-11-23] MEDS: METRONIDAZOLE PMX 500MG/100ML 100 ML IV SCH ×2 (04:42→12:49)
[2020-11-23 06:08] LABS: BASOPHILS % (AUTO) 1 % (0-1); EOSINOPHILS % (AUTO) 2 % (1-7); LYMPHOCYTES % (AUTO) 43 % (22-44); MEAN CORPUSCULAR HGB CONC 34.1 g/dL (33.2-36.2); MEAN PLATELET VOLUME 6.6 fL (7.4-10.4); MONOCYTES % (AUTO) 10 % (2-9); NEUTROPHILS % (AUTO) 45 % (42-75); PLATELET COUNT 228 x10^3/uL (130-400); RED BLOOD COUNT 2.97 x10^6/uL (4.38-5.82); RED CELL DISTRIBUTION WIDTH 14.6 % (9.4-14.8)
[2020-11-23 06:21] LABS: CHLORIDE 101 mmol/L (98-107); MD NO
[2020-11-23 06:27] LABS: ALANINE AMINOTRANSFERASE 139 U/L (12-78); ALBUMIN 2.7 g/dL (3.4-5.0); ALKALINE PHOSPHATASE 533 U/L (45-117); ANION GAP 10 mmol/L (5-15); BILIRUBIN,TOTAL 0.6 mg/dL (0.2-1.0); CALCIUM 8.7 mg/dL (8.5-10.1); CREATININE 0.53 mg/dL (0.7-1.3); TOTAL PROTEIN 6.6 g/dL (6.4-8.2)
[2020-11-23 07:03] VITALS: BP 156/85
[2020-11-23] MEDS ORDERED: POTASSIUM CHLORIDE 40 MEQ in SODIUM CHLORIDE 0.9% 500 ML IV ONE (07:30)
[2020-11-23] MEDS ORDERED: OMNIPAQUE 350 MG/ML, 100ML BOTTLE ONE (08:03)
[2020-11-23] MEDS: INSULIN LISPRO 100 UNITS/ML, PEN SQ-INSULIN SCH ×3 (08:34→16:54)
[2020-11-23] MEDS: SODIUM CHLORIDE FLUSH 10ML SYR IVF SCH (11:25)
[2020-11-23] MEDS: SODIUM CHLORIDE 0.9% 1,000 ML IV SCH ×2 (11:25→16:56)
[2020-11-23] MEDS: CEFTRIAXONE PMX 1GM/50ML 50 ML IV SCH (11:31)
[2020-11-23] MEDS: CALCIUM CARBONATE 500 MG TAB.CHEW PO PRN (11:31)
[2020-11-23] MEDS ORDERED: INSULIN GLARGINE 100 UNITS/ML, PEN SQ-INSULIN ONE (12:30)
[2020-11-23 13:55] VITALS: BP 162/84
[2020-11-23] MEDS ORDERED: OXYC10TA6 PO (16:53)
[2020-11-23] MEDS ORDERED: ONDA4TAB13 PO (16:53)
[2020-11-23] MEDS ORDERED: INSU100I34 SQ-INSULIN (16:53)
[2020-11-23] MEDS ORDERED: METO50TA82 PO (16:53)
[2020-11-23] MEDS ORDERED: INSU100I11 SQ-INSULIN (16:53)
[2020-11-23] MEDS ORDERED: DOCU-131 PO (17:28)
[2020-11-23] MEDS ORDERED: AMOX1TAB64 PO (18:56)
[2020-11-23] MEDS ORDERED: INSULIN GLARGINE 100 UNITS/ML, PEN SQ-INSULIN SCH ×2 (21:00)
== END 2020-11-23 18:45 | disposition home or self-care (01) | DRG 439 ==
LOC: ED 17:06 → EDIP 17:20 → 3N 18:09
PROVIDERS: ADMIT Hospitalist; ATTEND Internal Medicine
DX: K85.00 Idiopathic acute pancreatitis without necrosis or infection (principal); E87.1 Hypo-osmolality and hyponatremia; E87.2 Acidosis; K50.90 Crohn's disease, unspecified, without complications; E11.42 Type 2 diabetes mellitus with diabetic polyneuropathy; E11.65 Type 2 diabetes mellitus with hyperglycemia; E86.0 Dehydration; I10 Essential (primary) hypertension; K29.80 Duodenitis without bleeding; K81.1 Chronic cholecystitis; K21.9 Gastro-esophageal reflux disease without esophagitis; K82.8 Other specified diseases of gallbladder; E83.42 Hypomagnesemia; K86.1 Other chronic pancreatitis; R00.0 Tachycardia, unspecified; Z79.4 Long term (current) use of insulin; Z79.899 Other long term (current) drug therapy; Z83.3 Family history of diabetes mellitus; Z87.891 Personal history of nicotine dependence
CPT/HCPCS: 36415; 74022; 74178; 74181; 78227; 80053; 80061; 80074; 81001; 82010; 82947; 82962; 83036; 83605; 83690; 83735; 84100; 84145; 85025; 96361; 96374; 96375; 99285; G0378; J0696; J1170; J2405; J2785; J3480; Q9967; A9537; J0360; J1815; J2060; J2805; J3475; J7030; J7040

== ENCOUNTER 2021-02-20 14:06 | Inpatient (IN) | payer MEDICAID ==
[~2021-02-20] VITALS: Ht 172.7 cm; Wt 85.9 kg
[~2021-02-20 14:06] MED LIST changes: +AMOX1TAB64 PO; +METO50TA82 PO; -OMEP40CA42 PO; +OMEP40CA8 PO; +ONDA4TAB13 PO
--- NOTE | 2021-02-20 14:35 | NUR ---
PT CHANGED INTO GOWN AND ASSESSED BY RN AND ERPA. AWAITING ORDERS AT THIS TIME.
[2021-02-20] MEDS ORDERED: SODIUM CHLORIDE FLUSH 10ML SYR IVF ONE (15:00)
[2021-02-20] MEDS ORDERED: SODIUM CHLORIDE 0.9% 1,000ML IVBOLUS ONE ×2 (15:00→17:30)
[2021-02-20] MEDS ORDERED: ONDANSETRON 2MG/ML, 2ML ONE (15:38)
[2021-02-20] MEDS ORDERED: MORPHINE SULFATE 4 MG/ML, 1ML ONE (15:38)
[2021-02-20 15:40] LABS: BASOPHILS % (AUTO) 0 % (0-1); EOSINOPHILS % (AUTO) 0 % (1-7); LYMPHOCYTES % (AUTO) 14 % (22-44); MEAN CORPUSCULAR HEMOGLOBIN 30.9 pg (27.5-34.5); MEAN CORPUSCULAR HGB CONC 33.8 g/dL (33.2-36.2); MEAN PLATELET VOLUME 6.3 fL (7.4-10.4); MONOCYTES % (AUTO) 4 % (2-9); NEUTROPHILS % (AUTO) 82 % (42-75); PLATELET COUNT 422 x10^3/uL (130-400); RED BLOOD COUNT 4.38 x10^6/uL (4.38-5.82); RED CELL DISTRIBUTION WIDTH 15.5 % (9.4-14.8)
--- NOTE | 2021-02-20 15:40 | NUR ---
PT MEDICATED PER EMAR FOR NAUSEA AND PAIN. PT SITTING UP FOR COMFORT. LIGHTS DIMMED. SIDE RAILS UP, CALL LIGHT IN REACH.
[2021-02-20 15:47] LABS: ALBUMIN 3.4 g/dL (3.4-5.0); ANION GAP 16 mmol/L (5-15); CALCIUM 8.6 mg/dL (8.5-10.1); CHLORIDE 98 mmol/L (98-107)
[2021-02-20 15:53] LABS: ALANINE AMINOTRANSFERASE 91 U/L (12-78); ALKALINE PHOSPHATASE 360 U/L (45-117); BILIRUBIN,TOTAL 0.4 mg/dL (0.2-1.0); CREATININE 0.77 mg/dL (0.7-1.3); TOTAL PROTEIN 9.1 g/dL (6.4-8.2); TROPONIN I < 0.015 ng/mL (0.000-0.045)
[2021-02-20] MEDS ORDERED: ONDANSETRON 2MG/ML, 2ML IVPush ONE (16:00)
[2021-02-20] MEDS ORDERED: morphine SULFATE 10 MG/ML, 1ML IVPush ONE (16:00)
--- NOTE | 2021-02-20 16:23 | NUR ---
PT CURRENTLY IN CT. AWAITING RETURN FOR NAUSEA MEDICATION.
[2021-02-20] MEDS ORDERED: OMNIPAQUE 350 MG/ML, 75ML BOTTLE ONE (16:30)
[2021-02-20] MEDS ORDERED: METOCLOPRAMIDE 5 MG/ML, 2ML ONE (16:40)
[2021-02-20] MEDS ORDERED: METOCLOPRAMIDE 5 MG/ML, 2ML IVPush ONE (17:00)
[2021-02-20] MEDS ORDERED: HYDROmorphone 1 MG/ML, 1ML INJ ONE ×2 (17:41→18:21)
--- NOTE | 2021-02-20 17:45 | NUR ---
PT REPORTS RELIEF FROM NAUSEA WITH REGLAN.
[2021-02-20] MEDS ORDERED: HYDROmorphone 1 MG/ML, 1ML INJ IV ONE (18:00)
[2021-02-20] MEDS ORDERED: BUPR75FI3 PO (18:14)
[2021-02-20] MEDS ORDERED: DOCUSATE 100 MG CAPSULE PO PRN (18:30)
[2021-02-20] MEDS ORDERED: ONDANSETRON 2MG/ML, 2ML IVPush PRN (18:30)
[2021-02-20] MEDS ORDERED: GUAIFENESIN/DM 200-20MG, 10ML UDC PO PRN (18:30)
[2021-02-20] MEDS ORDERED: MELATONIN 5 MG TABLET PO PRN (18:30)
[2021-02-20] MEDS ORDERED: POLYETHYLENE GLYCOL 17 GM PACKET PO PRN (18:30)
[2021-02-20] MEDS ORDERED: METOCLOPRAMIDE 5 MG/ML, 2ML IVPush PRN (18:30)
[2021-02-20] MEDS: HYDROmorphone 2 MG/ML, 1ML IVPush PRN ×3 (18:32→23:51)
--- NOTE | 2021-02-20 18:42 | NUR ---
FIRST ATTEMPT TO CALL REPORT.
--- NOTE | 2021-02-20 18:51 | NUR ---
REPORT GIVEN TO INÉS ESQUEDA.
[2021-02-20] MEDS: LACTATED RINGERS 1,000 ML IV SCH (19:29)
[2021-02-20 19:44] VITALS: BP 154/100
[2021-02-20] MEDS ORDERED: PROMETHAZINE 25 MG/ML, 1ML IM ONE (21:00)
[2021-02-20] MEDS: FAMOTIDINE 20 MG/2 ML IVPush SCH (21:12)
[2021-02-20] MEDS: ENOXAPARIN 40 MG/0.4 ML SQ SCH (21:12)
[2021-02-20] MEDS: GABAPENTIN 300 MG CAPSULE PO SCH (21:12)
[2021-02-20] MEDS: KETOROLAC 30 MG/1 ML IV PRN (21:13)
[2021-02-20] MEDS: INSULIN LISPRO 100 UNITS/ML, PEN SQ-INSULIN SCH (23:30)
[2021-02-20] MEDS: INSULIN GLARGINE 100 UNITS/ML, PEN SQ-INSULIN SCH (23:31)
[2021-02-21 00:44] VITALS: BP 166/83
[2021-02-21] MEDS: LACTATED RINGERS 1,000 ML IV SCH ×2 (02:06→08:24)
[2021-02-21] MEDS: HYDROmorphone 2 MG/ML, 1ML IVPush PRN ×7 (03:10→23:08)
[2021-02-21 06:09] VITALS: BP 175/102
[2021-02-21] MEDS: METOPROLOL TARTRATE 50 MG TAB PO SCH ×2 (06:11→18:00)
[2021-02-21 07:11] VITALS: BP 179/96
[2021-02-21] MEDS: LABETALOL 5MG/ML, 20ML IVPush PRN ×2 (07:53→22:11)
[2021-02-21] MEDS: PANCRELIPASE 24,000 CAPSULE.DR PO SCH ×3 (08:15→16:37)
[2021-02-21] MEDS: FAMOTIDINE 20 MG/2 ML IVPush SCH ×2 (08:15→19:51)
[2021-02-21] MEDS: INSULIN LISPRO 100 UNITS/ML, PEN SQ-INSULIN SCH ×4 (08:16→21:21)
[2021-02-21] MEDS: GABAPENTIN 300 MG CAPSULE PO SCH ×3 (08:18→21:00)
[2021-02-21 09:35] LABS: BASOPHILS % (AUTO) 1 % (0-1); EOSINOPHILS % (AUTO) 0 % (1-7); LYMPHOCYTES % (AUTO) 24 % (22-44); MEAN CORPUSCULAR HEMOGLOBIN 30.8 pg (27.5-34.5); MEAN CORPUSCULAR HGB CONC 33.9 g/dL (33.2-36.2); MEAN PLATELET VOLUME 6.6 fL (7.4-10.4); MONOCYTES % (AUTO) 7 % (2-9); NEUTROPHILS % (AUTO) 69 % (42-75); PLATELET COUNT 307 x10^3/uL (130-400); RED BLOOD COUNT 3.75 x10^6/uL (4.38-5.82); RED CELL DISTRIBUTION WIDTH 15.4 % (9.4-14.8)
[2021-02-21 09:48] LABS: ANION GAP 8 mmol/L (5-15); CALCIUM 8.7 mg/dL (8.5-10.1); CHLORIDE 100 mmol/L (98-107); CREATININE 0.78 mg/dL (0.7-1.3)
[2021-02-21 09:57] VITALS: BP 172/97
[2021-02-21 14:32] VITALS: BP 156/91
[2021-02-21] MEDS: KETOROLAC 30 MG/1 ML IV PRN ×2 (16:31→23:08)
[2021-02-21] MEDS: D5%-0.45NACL+KCL 20MEQ 1,000 ML IV SCH (16:31)
[2021-02-21] MEDS: ENOXAPARIN 40 MG/0.4 ML SQ SCH (18:32)
[2021-02-21] MEDS: INSULIN GLARGINE 100 UNITS/ML, PEN SQ-INSULIN SCH (21:21)
[2021-02-21 22:11] VITALS: BP 176/105
[2021-02-22 01:50] VITALS: BP 172/79
[2021-02-22] MEDS: D5%-0.45NACL+KCL 20MEQ 1,000 ML IV SCH ×2 (02:00→12:37)
[2021-02-22] MEDS: HYDROmorphone 2 MG/ML, 1ML IVPush PRN ×3 (02:03→08:37)
[2021-02-22] MEDS: KETOROLAC 30 MG/1 ML IV PRN (05:11)
[2021-02-22] MEDS: METOPROLOL TARTRATE 50 MG TAB PO SCH (06:00)
[2021-02-22 06:14] VITALS: BP 168/99
[2021-02-22] MEDS: LABETALOL 5MG/ML, 20ML IVPush PRN (06:24)
[2021-02-22 07:21] VITALS: BP 145/76
[2021-02-22] MEDS: INSULIN LISPRO 100 UNITS/ML, PEN SQ-INSULIN SCH ×2 (07:57→11:33)
[2021-02-22] MEDS: PANCRELIPASE 24,000 CAPSULE.DR PO SCH ×2 (08:36→12:37)
[2021-02-22] MEDS: GABAPENTIN 300 MG CAPSULE PO SCH (08:36)
[2021-02-22] MEDS: FAMOTIDINE 20 MG/2 ML IVPush SCH (08:37)
== END 2021-02-22 13:30 | disposition home or self-care (01) | DRG 439 ==
LOC: ED 17:49 → EDIP 19:15 → 4WST 19:31
PROVIDERS: ADMIT Internal Medicine; ATTEND Family Medicine
DX: K85.80 Other acute pancreatitis without necrosis or infection (principal); K50.90 Crohn's disease, unspecified, without complications; E11.42 Type 2 diabetes mellitus with diabetic polyneuropathy; K86.1 Other chronic pancreatitis; E11.65 Type 2 diabetes mellitus with hyperglycemia; G89.29 Other chronic pain; I10 Essential (primary) hypertension; R74.01 Elevation of levels of liver transaminase levels; Z79.4 Long term (current) use of insulin; Z83.511 Family history of glaucoma; Z90.49 Acquired absence of other specified parts of digestive tract; Z83.3 Family history of diabetes mellitus
CPT/HCPCS: 36415; 71275; 80048; 80053; 82962; 83036; 83690; 83735; 84484; 85025; 93005; G0378; J1170; J1650; J1885; J2405; J2550; Q9967; J1815; J2270; J2765; J3480; J7030; J7120

== ENCOUNTER 2021-04-23 02:45 | Emergency (ER) | payer MEDICAID ==
[~2021-04-23] VITALS: Ht 172.7 cm; Wt 85.0 kg
[~2021-04-23 02:45] MED LIST changes: +BUPR75FI3 PO; +OXYC1TAB12 PO; -OXYC1TAB14 PO
[2021-04-23 02:49] VITALS: BP 146/124
== END 2021-04-23 03:22 | disposition left against medical advice (07) ==
LOC: ED 03:00
DX: R51.9 Headache, unspecified (principal); Z53.21 Procedure and treatment not carried out due to patient leaving prior to being seen by health care provider